=== PATIENT | female | born 1975 | race Caucasian/White ===

== ENCOUNTER 2018-04-08 17:03 | Emergency (ER) | payer OTHER ==
[2018-04-08 18:26] LABS: ADD MAN DIFF? NO
[2018-04-08 18:27] LABS: BASOPHIL # 0.1 10^3/ul (0.0-0.1); BASOPHILS % 0.7 % (0.0-2.0); EOSINOPHILS # 0.1 10^3/ul (0.0-0.5); EOSINOPHILS % 0.8 % (0.0-7.0); HEMATOCRIT 30.7 % (37.0-47.0); HEMOGLOBIN 10.4 g/dl (12.0-16.0); LYMPHOCYTES # 2.2 10^3/ul (0.8-2.9); LYMPHOCYTES % 24.8 % (15.0-51.0); MEAN CORPUSCULAR HEMOGLOBIN 34.9 pg (29.0-33.0); MEAN CORPUSCULAR HGB CONC 33.9 g/dl (32.0-37.0); MEAN PLATELET VOLUME 10.3 fl (7.4-10.4); MONOCYTE # 0.6 10^3/ul (0.3-0.9); MONOCYTES % 7.2 % (0.0-11.0); NEUTROPHIL # 5.7 10^3/ul (1.6-7.5); NEUTROPHILS % 65.9 % (39.0-77.0); PLATELET COUNT 139 10^3/UL (140-415); RED BLOOD COUNT 2.98 10^6/ul (4.20-5.40); RED CELL DISTRIBUTION WIDTH 17.7 % (11.5-14.5)
[2018-04-08 18:27] LABS: WHITE BLOOD COUNT 8.7 10^3/ul (4.8-10.8)
[2018-04-08] MEDS: ONDANSETRON 4 MG INJ IV ×2 (18:41→20:26)
[2018-04-08] MEDS: morphine 4 MG/ML VIAL IV (18:41)
[2018-04-08 18:44] LABS: ADD UMIC NO; ALANINE AMINOTRANSFERASE 56 IU/L (13-69); ALBUMIN 4.2 g/dl (3.3-4.9); ALKALINE PHOSPHATASE 192 IU/L (42-121); ANION GAP 19 (8-16); ASPARTATE AMINO TRANSFERASE 365 IU/L (15-46); BILIRUBIN,INDIRECT 2.9 mg/dl (0-1.1); BILIRUBIN,TOTAL 4.4 mg/dl (0.2-1.3); CARBON DIOXIDE 23 mmol/L (21-31); CHLORIDE 105 mmol/L (97-110); CREATININE 0.42 mg/dl (0.44-1.00); GLUCOSE 92 mg/dl (70-220); LIPASE 105 U/L (23-300); SODIUM 143 mmol/L (135-144); TOTAL PROTEIN 9.9 g/dl (6.1-8.1); UR ASCORBIC ACID NEGATIVE (NEGATIVE); UR BILIRUBIN (Dip) NEGATIVE (NEGATIVE); UR BLOOD (Dip) NEGATIVE (NEGATIVE); UR CLARITY CLEAR (CLEAR); UR COLOR YELLOW (YELLOW); UR GLUCOSE (Dip) NEGATIVE (NEGATIVE); UR KETONES (Dip) NEGATIVE (NEGATIVE); UR LEUKOCYTE ESTERASE (Dip) NEGATIVE Leu/ul (NEGATIVE); UR NITRITE (Dip) NEGATIVE (NEGATIVE); UR SPECIFIC GRAVITY (Dip) 1.001 (1.003-1.030); UR TOTAL PROTEIN (Dip) NEGATIVE (NEGATIVE); UR UROBILINOGEN (Dip) 1+ mg/dL (NEGATIVE)
[2018-04-08 18:45] LABS: ALBUMIN/GLOBULIN RATIO 0.73; BLOOD UREA NITROGEN < 2 mg/dl (7-20)
[2018-04-08 18:51] LABS: PROTIME 18.4 Sec (11.9-14.9); PT RATIO 1.4
[2018-04-08 18:52] LABS: PARTIAL THROMBOPLASTIN TIME 41.8 Sec (25.0-35.0)
[2018-04-08] MEDS: IODIXANOL LOCM 100 ML BTL (20:15)
[2018-04-08] MEDS: SOD CHLORIDE 0.9% 100 ML (20:15)
== END 2018-04-08 23:09 | disposition home or self-care (01) ==
LOC: FTE 17:03
DX: S80.12XA Contusion of left lower leg, initial encounter (principal); K74.60 Unspecified cirrhosis of liver; J45.909 Unspecified asthma, uncomplicated; E03.9 Hypothyroidism, unspecified; W18.39XA Other fall on same level, initial encounter; Y92.9 Unspecified place or not applicable
CPT/HCPCS: 36415; 74177; 80053; 81003; 81025; 83690; 85025; 85610; 85730; 93971; 96374; 96375; 96376; 99285-25

== ENCOUNTER 2018-06-06 19:48 | Inpatient (IN) | payer OTHER ==
[2018-06-06 20:28] LABS: WHITE BLOOD COUNT 6.6 10^3/ul (4.8-10.8)
[2018-06-06 20:28] LABS: ABNORMAL IP MESSAGE 1; MEAN CORPUSCULAR HEMOGLOBIN 33.8 pg (29.0-33.0); MEAN CORPUSCULAR HGB CONC 32.9 g/dl (32.0-37.0); MEAN CORPUSCULAR VOLUME 102.9 fl (82.0-101.0); MEAN PLATELET VOLUME 10.3 fl (7.4-10.4); PLATELET COUNT 111 10^3/UL (140-415); RED BLOOD COUNT 2.04 10^6/ul (4.20-5.40); RED CELL DISTRIBUTION WIDTH 14.7 % (11.5-14.5)
[2018-06-06] MEDS: LIDOCAINE 2% JELLY 5 ML TOP (20:33)
[2018-06-06 20:34] LABS: HEMOGLOBIN 6.9 g/dl (12.0-16.0); POSITIVE DIFF @See below
[2018-06-06 20:35] LABS: ADD MAN DIFF? YES; PATH REVIEW? YES
[2018-06-06] MEDS: SOD CHLORIDE 0.9% 1,000 ML IV ×2 (20:45→20:46)
[2018-06-06 20:50] LABS: ALANINE AMINOTRANSFERASE 26 IU/L (13-69); ALBUMIN 3.1 g/dl (3.3-4.9); ALBUMIN/GLOBULIN RATIO 0.63; ALKALINE PHOSPHATASE 186 IU/L (42-121); ANION GAP 14 (8-16); ASPARTATE AMINO TRANSFERASE 83 IU/L (15-46); BLOOD UREA NITROGEN 10 mg/dl (7-20); CALCIUM 8.3 mg/dl (8.4-10.2); CARBON DIOXIDE 23 mmol/L (21-31); CHLORIDE 106 mmol/L (97-110); CREATININE 0.59 mg/dl (0.44-1.00); GLUCOSE 109 mg/dl (70-220); LIPASE 445 U/L (23-300); POTASSIUM 3.7 mmol/L (3.5-5.1); SODIUM 139 mmol/L (135-144)
[2018-06-06 21:00] LABS: PROTIME 24.1 Sec (11.9-14.9); PT RATIO 1.9
[2018-06-06 21:04] LABS: ETHANOL < 10.0 mg/dl
[2018-06-06] MEDS: ONDANSETRON 4 MG INJ IV (21:12)
[2018-06-06] MEDS: PANTOPRAZOLE 40 MG INJ IV ×2 (21:12→21:38)
[2018-06-06 21:32] LABS: PARTIAL THROMBOPLASTIN TIME 45.3 Sec (25.0-35.0)
[2018-06-06] MEDS: OCTREOTIDE 50 MCG in SOD CHLORIDE 0.9% 25 ML IVPB (21:35)
[2018-06-06] MEDS: PANTOPRAZOLE IV 80 MG in SOD CHLORIDE 0.9% 100 ML IV (21:36)
[2018-06-06] MEDS: OCTREOTIDE 500 MCG in SOD CHLORIDE 0.9% 49 ML IV (21:36)
[2018-06-06 22:24] LABS: URINE BLOOD (Dip) POC Negative (NEGATIVE); URINE GLUCOSE (Dip) POC Negative (NEGATIVE); URINE KETONES (Dip) POC Negative (NEGATIVE); URINE LEUKOCYTE EST (Dip) POC Negative (NEGATIVE); URINE NITRITE (Dip) POC Negative (NEGATIVE); URINE TOTAL PROTEIN POC Negative (NEGATIVE)
[2018-06-06 22:32] LABS: ANISOCYTOSIS 1+ (0-0); BAND NEUTROPHILS #M 0.1 10^3/ul (0.0-0.6); BAND NEUTROPHILS % (M) 2 % (0-4); EOSINOPHILS % (M) 10 % (0-7); LYMPHOCYTES #M 1.8 10^3/ul (0.8-2.9); LYMPHOCYTES % (M) 28 % (15-51); MONOCYTE #M 0.2 10^3/ul (0.3-0.9); MONOCYTES % (M) 4 % (0-11); PLATELET ESTIMATE DECREASED; POIKILOCYTOSIS 3+ (0-0); SEG NEUT #M 3.7 10^3/ul (1.6-7.5); SEGMENTED NEUTROPHILS (M) % 56 % (39-77); SMUDGE%M 8 % (0-0)
[2018-06-06] MEDS ORDERED: ONDANSETRON 4 MG INJ IV (23:00)
[2018-06-06] MEDS ORDERED: NACL 0.9% 3 ML SYG IV (23:00)
[2018-06-06] MEDS ORDERED: DEXTROSE 5%-0.45% NACL 1,000 ML IV (23:00)
[2018-06-06] MEDS: LORAZEPAM 2 MG INJ IV (23:05)
[2018-06-06 23:12] LABS: IMMEDIATE SPIN CROSSMATCH 1 4
[2018-06-07] MEDS: PANTOPRAZOLE IV 80 MG in SOD CHLORIDE 0.9% 100 ML IV ×2 (07:38→19:56)
[2018-06-07] MEDS ORDERED: LEVOTHYROXINE 500 MCG VIAL IV (10:00)
[2018-06-07 10:06] LABS: ADD MAN DIFF? NO
[2018-06-07 10:30] LABS: WHITE BLOOD COUNT 5.2 10^3/ul (4.8-10.8)
[2018-06-07 10:30] LABS: ABNORMAL IP MESSAGE 1; BASOPHILS % 0.4 % (0.0-2.0); EOSINOPHILS # 0.2 10^3/ul (0.0-0.5); EOSINOPHILS % 2.9 % (0.0-7.0); HEMATOCRIT 22.4 % (37.0-47.0); HEMOGLOBIN 7.5 g/dl (12.0-16.0); LYMPHOCYTES # 1.2 10^3/ul (0.8-2.9); LYMPHOCYTES % 23.1 % (15.0-51.0); MEAN CORPUSCULAR HEMOGLOBIN 33.3 pg (29.0-33.0); MEAN CORPUSCULAR HGB CONC 33.5 g/dl (32.0-37.0); MEAN CORPUSCULAR VOLUME 99.6 fl (82.0-101.0); MEAN PLATELET VOLUME 10.9 fl (7.4-10.4); MONOCYTE # 0.4 10^3/ul (0.3-0.9); MONOCYTES % 8.2 % (0.0-11.0); NEUTROPHIL # 3.4 10^3/ul (1.6-7.5); NEUTROPHILS % 64.8 % (39.0-77.0); PLATELET COUNT 90 10^3/UL (140-415); RED BLOOD COUNT 2.25 10^6/ul (4.20-5.40); RED CELL DISTRIBUTION WIDTH 17.3 % (11.5-14.5)
[2018-06-07 10:31] LABS: POSITIVE DIFF @See below
[2018-06-07 10:33] LABS: LACTIC ACID 1.2 mmol/L (0.5-2.0)
[2018-06-07 10:33] LABS: ALANINE AMINOTRANSFERASE 28 IU/L (13-69); ALBUMIN 2.8 g/dl (3.3-4.9); ALBUMIN/GLOBULIN RATIO 0.63; ALKALINE PHOSPHATASE 135 IU/L (42-121); ANION GAP 9 (8-16); ASPARTATE AMINO TRANSFERASE 75 IU/L (15-46); BILIRUBIN,INDIRECT 4.4 mg/dl (0-1.1); BILIRUBIN,TOTAL 4.4 mg/dl (0.2-1.3); BLOOD UREA NITROGEN 12 mg/dl (7-20); CARBON DIOXIDE 25 mmol/L (21-31); CHLORIDE 109 mmol/L (97-110); CREATININE 0.54 mg/dl (0.44-1.00); GLUCOSE 123 mg/dl (70-220); SODIUM 139 mmol/L (135-144); TOTAL PROTEIN 7.2 g/dl (6.1-8.1)
[2018-06-07] MEDS: SOD CHLORIDE 0.9% 1,000 ML IV ×3 (11:13→23:01)
[2018-06-07] MEDS: LEVOTHYROXINE 100 MCG VIAL IV (11:14)
[2018-06-07] MEDS: OCTREOTIDE 1 MG in DEXTROSE 5% 95 ML IV (11:20)
[2018-06-07] MEDS ORDERED: morphine 2 MG INJ IV (14:30)
[2018-06-07] MEDS: LORAZEPAM 2 MG INJ IV (15:59)
[2018-06-07 16:21] LABS: IMMEDIATE SPIN CROSSMATCH 1
[2018-06-07] MEDS: SOD CHLORIDE 0.9% 250 ML IV* (16:36)
[2018-06-08 01:18] LABS: HEMATOCRIT 25.9 % (37.0-47.0); HEMOGLOBIN 8.8 g/dl (12.0-16.0)
[2018-06-08] MEDS: PANTOPRAZOLE IV 80 MG in SOD CHLORIDE 0.9% 100 ML IV ×2 (03:54→16:55)
[2018-06-08] MEDS: OCTREOTIDE 1 MG in DEXTROSE 5% 95 ML IV (04:15)
[2018-06-08 05:17] LABS: ADD MAN DIFF? NO
[2018-06-08 05:26] LABS: ABNORMAL IP MESSAGE 1; BASOPHIL # 0.1 10^3/ul (0.0-0.1); BASOPHILS % 1.1 % (0.0-2.0); EOSINOPHILS # 0.3 10^3/ul (0.0-0.5); EOSINOPHILS % 5.7 % (0.0-7.0); HEMATOCRIT 25.3 % (37.0-47.0); HEMOGLOBIN 8.5 g/dl (12.0-16.0); LYMPHOCYTES # 1.7 10^3/ul (0.8-2.9); LYMPHOCYTES % 35.2 % (15.0-51.0); MEAN CORPUSCULAR HEMOGLOBIN 32.8 pg (29.0-33.0); MEAN CORPUSCULAR HGB CONC 33.6 g/dl (32.0-37.0); MEAN CORPUSCULAR VOLUME 97.7 fl (82.0-101.0); MEAN PLATELET VOLUME 10.5 fl (7.4-10.4); MONOCYTE # 0.4 10^3/ul (0.3-0.9); MONOCYTES % 8.8 % (0.0-11.0); NEUTROPHIL # 2.3 10^3/ul (1.6-7.5); NEUTROPHILS % 48.4 % (39.0-77.0); PLATELET COUNT 87 10^3/UL (140-415); RED BLOOD COUNT 2.59 10^6/ul (4.20-5.40); RED CELL DISTRIBUTION WIDTH 17.2 % (11.5-14.5)
[2018-06-08 05:26] LABS: WHITE BLOOD COUNT 4.8 10^3/ul (4.8-10.8)
[2018-06-08 05:39] LABS: POSITIVE DIFF @See below
[2018-06-08] MEDS: LEVOTHYROXINE 100 MCG VIAL IV (05:39)
[2018-06-08 05:46] LABS: PROTIME 23.2 Sec (11.9-14.9); PT RATIO 1.8
[2018-06-08 05:47] LABS: PARTIAL THROMBOPLASTIN TIME 41.6 Sec (25.0-35.0); THROMBIN TIME 20.5 SEC (13.8-19.1)
[2018-06-08 05:53] LABS: PLATELET COUNT 89 10^3/UL (140-415)
[2018-06-08 05:59] LABS: MAGNESIUM 1.9 mg/dl (1.7-2.5)
[2018-06-08] MEDS ORDERED: LEVOTHYROXINE 500 MCG VIAL IV (06:00)
[2018-06-08 06:05] LABS: ALANINE AMINOTRANSFERASE 31 IU/L (13-69); ALBUMIN 2.6 g/dl (3.3-4.9); ALBUMIN/GLOBULIN RATIO 0.55; ALKALINE PHOSPHATASE 101 IU/L (42-121); ANION GAP 11 (8-16); ASPARTATE AMINO TRANSFERASE 88 IU/L (15-46); BLOOD UREA NITROGEN 11 mg/dl (7-20); CALCIUM 8.2 mg/dl (8.4-10.2); CARBON DIOXIDE 24 mmol/L (21-31); CHLORIDE 109 mmol/L (97-110); GLUCOSE 93 mg/dl (70-220); POTASSIUM 3.6 mmol/L (3.5-5.1); SODIUM 140 mmol/L (135-144); TOTAL PROTEIN 7.3 g/dl (6.1-8.1)
[2018-06-08] MEDS: LORAZEPAM 2 MG INJ IV (06:52)
[2018-06-08 11:35] LABS: HEMATOCRIT 25.3 % (37.0-47.0); HEMOGLOBIN 8.5 g/dl (12.0-16.0)
[2018-06-08] MEDS ORDERED: MIDAZOLAM 1 MG/ML 2 ML INJ (12:54)
[2018-06-08] MEDS ORDERED: PROPOFOL 20 ML (12:54)
[2018-06-08] MEDS ORDERED: LIDOCAINE 2% (SDV) 5 ML INJ (12:54)
[2018-06-08] MEDS ORDERED: ONDANSETRON 4 MG INJ IV (14:00)
[2018-06-08] MEDS: SOD CHLORIDE 0.9% 1,000 ML IV (16:56)
[2018-06-08] MEDS: ALBUTEROL/IPRATROPIUM (NEB) 3 ML AMP HHN (17:09)
[2018-06-08] MEDS: SUCRALFATE 1 GM TAB PO ×2 (17:23→20:21)
[2018-06-09] MEDS: LORAZEPAM 2 MG INJ IV ×2 (00:01→20:12)
[2018-06-09] MEDS: PANTOPRAZOLE IV 80 MG in SOD CHLORIDE 0.9% 100 ML IV ×2 (00:01→09:17)
[2018-06-09] MEDS: SOD CHLORIDE 0.9% 1,000 ML IV (01:30)
[2018-06-09] MEDS: ALBUTEROL/IPRATROPIUM (NEB) 3 ML AMP HHN ×2 (02:46→09:40)
[2018-06-09 06:11] LABS: ADD MAN DIFF? NO
[2018-06-09 06:20] LABS: ABNORMAL IP MESSAGE 1; BASOPHILS % 0.7 % (0.0-2.0); EOSINOPHILS # 0.3 10^3/ul (0.0-0.5); EOSINOPHILS % 6.4 % (0.0-7.0); HEMATOCRIT 25.2 % (37.0-47.0); HEMOGLOBIN 8.5 g/dl (12.0-16.0); LYMPHOCYTES # 1.4 10^3/ul (0.8-2.9); LYMPHOCYTES % 32.7 % (15.0-51.0); MEAN CORPUSCULAR HEMOGLOBIN 33.2 pg (29.0-33.0); MEAN CORPUSCULAR HGB CONC 33.7 g/dl (32.0-37.0); MEAN CORPUSCULAR VOLUME 98.4 fl (82.0-101.0); MEAN PLATELET VOLUME 10.6 fl (7.4-10.4); MONOCYTE # 0.4 10^3/ul (0.3-0.9); MONOCYTES % 9.7 % (0.0-11.0); NEUTROPHIL # 2.1 10^3/ul (1.6-7.5); NEUTROPHILS % 49.8 % (39.0-77.0); PLATELET COUNT 79 10^3/UL (140-415); RED BLOOD COUNT 2.56 10^6/ul (4.20-5.40); RED CELL DISTRIBUTION WIDTH 17.2 % (11.5-14.5)
[2018-06-09 06:20] LABS: WHITE BLOOD COUNT 4.2 10^3/ul (4.8-10.8)
[2018-06-09 06:38] LABS: ANION GAP 11 (8-16); BLOOD UREA NITROGEN 8 mg/dl (7-20); CARBON DIOXIDE 26 mmol/L (21-31); CHLORIDE 107 mmol/L (97-110); CREATININE 0.59 mg/dl (0.44-1.00); GLUCOSE 93 mg/dl (70-220); MAGNESIUM 1.7 mg/dl (1.7-2.5); PHOSPHORUS 4.2 mg/dl (2.5-4.9); POTASSIUM 3.5 mmol/L (3.5-5.1); SODIUM 140 mmol/L (135-144)
[2018-06-09 06:55] LABS: POSITIVE DIFF @See below
[2018-06-09] MEDS: LEVOTHYROXINE 100 MCG VIAL IV (07:12)
[2018-06-09] MEDS: SUCRALFATE 1 GM TAB PO ×4 (09:17→20:12)
[2018-06-09] MEDS: PANTOPRAZOLE (EC) 40 MG TAB PO ×2 (11:55→17:19)
[2018-06-09] MEDS: FUROSEMIDE 20 MG TAB PO (11:56)
[2018-06-09] MEDS: PROPRANOLOL 10 MG TAB PO ×2 (13:31→20:12)
[2018-06-10] MEDS: ALBUTEROL/IPRATROPIUM (NEB) 3 ML AMP HHN (02:15)
[2018-06-10] MEDS: LORAZEPAM 2 MG INJ IV (04:10)
[2018-06-10] MEDS: PANTOPRAZOLE (EC) 40 MG TAB PO (06:46)
[2018-06-10] MEDS: LEVOTHYROXINE 125 MCG TAB PO (06:48)
[2018-06-10 07:05] LABS: ADD MAN DIFF? NO
[2018-06-10 07:12] LABS: WHITE BLOOD COUNT 4.5 10^3/ul (4.8-10.8)
[2018-06-10 07:12] LABS: ABNORMAL IP MESSAGE 1; BASOPHILS % 0.9 % (0.0-2.0); EOSINOPHILS # 0.4 10^3/ul (0.0-0.5); EOSINOPHILS % 9.3 % (0.0-7.0); HEMATOCRIT 25.9 % (37.0-47.0); HEMOGLOBIN 8.7 g/dl (12.0-16.0); LYMPHOCYTES # 1.4 10^3/ul (0.8-2.9); LYMPHOCYTES % 31.2 % (15.0-51.0); MEAN CORPUSCULAR HEMOGLOBIN 32.7 pg (29.0-33.0); MEAN CORPUSCULAR HGB CONC 33.6 g/dl (32.0-37.0); MEAN CORPUSCULAR VOLUME 97.4 fl (82.0-101.0); MEAN PLATELET VOLUME 10.5 fl (7.4-10.4); MONOCYTE # 0.5 10^3/ul (0.3-0.9); MONOCYTES % 10.2 % (0.0-11.0); NEUTROPHIL # 2.2 10^3/ul (1.6-7.5); PLATELET COUNT 79 10^3/UL (140-415); RED BLOOD COUNT 2.66 10^6/ul (4.20-5.40); RED CELL DISTRIBUTION WIDTH 17.3 % (11.5-14.5)
[2018-06-10 07:22] LABS: POSITIVE DIFF @See below
[2018-06-10 07:56] LABS: ANION GAP 8 (8-16); BLOOD UREA NITROGEN 8 mg/dl (7-20); CALCIUM 8.1 mg/dl (8.4-10.2); CARBON DIOXIDE 29 mmol/L (21-31); CHLORIDE 106 mmol/L (97-110); GLUCOSE 85 mg/dl (70-220); MAGNESIUM 1.6 mg/dl (1.7-2.5); PHOSPHORUS 4.6 mg/dl (2.5-4.9); POTASSIUM 3.4 mmol/L (3.5-5.1); SODIUM 140 mmol/L (135-144)
[2018-06-10] MEDS: SPIRONOLACTONE 25 MG TAB PO (09:07)
[2018-06-10] MEDS: PROPRANOLOL 10 MG TAB PO ×2 (09:08→14:40)
[2018-06-10] MEDS: SUCRALFATE 1 GM TAB PO ×2 (09:08→14:40)
[2018-06-10] MEDS: FUROSEMIDE 20 MG TAB PO (09:09)
[2018-06-10] MEDS: POTASSIUM CHLORIDE 20 MEQ POWDER FOR ORAL SOLN PO (10:06)
[2018-06-10] MEDS ORDERED: MAGNESIUM OXIDE 400 MG TAB PO (11:30)
[2018-06-10] MEDS: MAGNESIUM OXIDE 400 MG TAB PO (14:40)
== END 2018-06-10 15:20 | disposition home or self-care (01) | DRG 377 ==
LOC: ICU 21:13 → 6WM 06-09 02:33 → E/R 19:48
PROC: 0DJ08ZZ Inspection of Upper Intestinal Tract, Via Natural or Artificial Opening Endoscopic (ICD-10-PCS; principal; 2018-06-08 12:43)
PROC: 30233K1 Transfusion of Nonautologous Frozen Plasma into Peripheral Vein, Percutaneous Approach (ICD-10-PCS; 2018-06-08 12:43)
PROC: 30233N1 Transfusion of Nonautologous Red Blood Cells into Peripheral Vein, Percutaneous Approach (ICD-10-PCS; 2018-06-08 12:43)
DX: K25.4 Chronic or unspecified gastric ulcer with hemorrhage (principal); K85.90 Acute pancreatitis without necrosis or infection, unspecified; D62 Acute posthemorrhagic anemia; D68.4 Acquired coagulation factor deficiency; I85.00 Esophageal varices without bleeding; I95.9 Hypotension, unspecified; D69.6 Thrombocytopenia, unspecified; K70.30 Alcoholic cirrhosis of liver without ascites; K80.20 Calculus of gallbladder without cholecystitis without obstruction; Q27.33 Arteriovenous malformation of digestive system vessel; E80.6 Other disorders of bilirubin metabolism; E03.9 Hypothyroidism, unspecified; D53.9 Nutritional anemia, unspecified
CPT/HCPCS: 36415; 36430; 71045; 74181; 76700; 80048; 80053; 80307; 81003; 81025; 83605; 83690; 83735; 84100; 85014; 85018; 85025; 85049; 85610; 85670; 85730; 86850; 86900; 86901; 86920; 87040; 87081; 93005; 94640; 94664; 96374; 96375; 99291-25

== ENCOUNTER 2018-07-09 19:19 | Observation (INO) | payer OTHER ==
[2018-07-09 22:07] LABS: ADD UMIC YES; UR ASCORBIC ACID 20 mg/dL (NEGATIVE); UR BILIRUBIN (Dip) NEGATIVE (NEGATIVE); UR BLOOD (Dip) NEGATIVE (NEGATIVE); UR CLARITY CLEAR (CLEAR); UR COLOR AMBER (YELLOW); UR GLUCOSE (Dip) NEGATIVE (NEGATIVE); UR KETONES (Dip) NEGATIVE (NEGATIVE); UR LEUKOCYTE ESTERASE (Dip) NEGATIVE Leu/ul (NEGATIVE); UR NITRITE (Dip) NEGATIVE (NEGATIVE); UR RBC 4 /HPF (0-5); UR SPECIFIC GRAVITY (Dip) 1.017 (1.003-1.030); UR SQUAMOUS EPITHELIAL CELL FEW /HPF (FEW); UR TOTAL PROTEIN (Dip) 1+ mg/dl (NEGATIVE); UR UROBILINOGEN (Dip) 2+ mg/dL (NEGATIVE); UR WBC 3 /HPF (0-5)
[2018-07-09 22:15] LABS: ADD MAN DIFF? NO
[2018-07-09 22:16] LABS: WHITE BLOOD COUNT 10.4 10^3/ul (4.8-10.8)
[2018-07-09 22:16] LABS: BASOPHILS % 0.3 % (0.0-2.0); EOSINOPHILS # 0.2 10^3/ul (0.0-0.5); EOSINOPHILS % 2.3 % (0.0-7.0); HEMATOCRIT 24.4 % (37.0-47.0); LYMPHOCYTES # 1.7 10^3/ul (0.8-2.9); LYMPHOCYTES % 16.4 % (15.0-51.0); MEAN CORPUSCULAR HEMOGLOBIN 34.9 pg (29.0-33.0); MEAN CORPUSCULAR HGB CONC 32.8 g/dl (32.0-37.0); MEAN CORPUSCULAR VOLUME 106.6 fl (82.0-101.0); MEAN PLATELET VOLUME 10.8 fl (7.4-10.4); MONOCYTES % 9.2 % (0.0-11.0); NEUTROPHIL # 7.4 10^3/ul (1.6-7.5); NEUTROPHILS % 71.2 % (39.0-77.0); PLATELET COUNT 118 10^3/UL (140-415); RED BLOOD COUNT 2.29 10^6/ul (4.20-5.40); RED CELL DISTRIBUTION WIDTH 17.7 % (11.5-14.5)
[2018-07-09] MEDS: SODIUM CHLORIDE 0.9% 1L BAG IV* (22:18)
[2018-07-09] MEDS: ACETAMINOPHEN 325 MG TAB PO (22:27)
[2018-07-09] MEDS: ONDANSETRON 4 MG INJ IV (22:28)
[2018-07-09] MEDS: LIDOCAINE/MYLANTA 40 ML BTL PO (22:28)
[2018-07-09] MEDS: morphine 4 MG/ML VIAL IV (22:29)
[2018-07-09 22:31] LABS: INR 2.22; PROTIME 25.2 Sec (11.9-14.9)
[2018-07-09 22:32] LABS: PARTIAL THROMBOPLASTIN TIME 46.2 Sec (23.0-35.0)
[2018-07-09 22:37] LABS: ANION GAP 10 (8-16); BLOOD UREA NITROGEN 7 mg/dl (7-20); CALCIUM 8.8 mg/dl (8.4-10.2); CARBON DIOXIDE 28 mmol/L (21-31); CHLORIDE 103 mmol/L (97-110); CREATININE 0.61 mg/dl (0.44-1.00); GLUCOSE 127 mg/dl (70-220); POTASSIUM 4.2 mmol/L (3.5-5.1); SODIUM 137 mmol/L (135-144)
[2018-07-09 22:49] LABS: TROPONIN-I < 0.012 ng/ml (0.000-0.120)
[2018-07-09] MEDS: ALBUTEROL/IPRATROPIUM (NEB) 3 ML AMP HHN (23:32)
[2018-07-10] MEDS: CEFEPIME 1GM/50 ML (PMX) 50 ML IVPB (01:06)
[2018-07-10] MEDS: CIPROFLOXACIN 400MG/D5W 200 ML IVPB (01:37)
[2018-07-10] MEDS: ONDANSETRON 4 MG INJ IV (01:52)
[2018-07-10] MEDS: LORAZEPAM 2 MG INJ IV (01:52)
[2018-07-10] MEDS ORDERED: DOCUSATE SODIUM 100 MG CAP PO (02:00)
[2018-07-10] MEDS ORDERED: ALBUTEROL 0.083% (NEB) 2.5 MG/3 ML AMP NEB (02:00)
[2018-07-10] MEDS ORDERED: BISACODYL (EC) 5 MG TAB PO (02:00)
[2018-07-10] MEDS ORDERED: ONDANSETRON 4 MG INJ IV (02:00)
[2018-07-10] MEDS ORDERED: NACL 0.9% 3 ML SYG IV (02:00)
[2018-07-10] MEDS: ALBUTEROL/IPRATROPIUM (NEB) 3 ML AMP HHN ×3 (04:03→16:59)
[2018-07-10] MEDS: LIDOCAINE/MYLANTA 40 ML BTL PO (04:21)
[2018-07-10] MEDS: PANTOPRAZOLE (EC) 40 MG TAB PO ×2 (06:09→17:34)
[2018-07-10] MEDS: PIPER-TAZO 3.375 GM IV (PMX) 100 ML IVPB ×4 (06:10→23:57)
[2018-07-10] MEDS: FUROSEMIDE 20 MG TAB PO ×2 (06:10→12:35)
[2018-07-10] MEDS: LEVOTHYROXINE 100 MCG TAB PO (06:10)
[2018-07-10] MEDS: LEVOTHYROXINE 25 MCG TAB PO (06:13)
[2018-07-10 06:15] LABS: LACTIC ACID 1.2 mmol/L (0.5-2.0)
[2018-07-10 06:26] LABS: B-TYPE NATRIURETIC PEPTIDE 2020 PG/ML (0-125)
[2018-07-10 08:09] LABS: FOLATE 6.6 ng/ml (2.8-20.0)
[2018-07-10] MEDS: predniSONE 20 MG TAB PO (09:00)
[2018-07-10] MEDS: SPIRONOLACTONE 25 MG TAB PO ×2 (09:00→16:00)
[2018-07-10] MEDS: PROPRANOLOL 10 MG TAB PO ×3 (09:00→20:14)
[2018-07-10] MEDS: SUCRALFATE 1 GM TAB PO ×4 (09:17→20:14)
[2018-07-10] MEDS: INFLUENZA VIRUS VACCINE 0.5 ML (DISPENSING) IM* (12:37)
[2018-07-10] MEDS: LORAZEPAM 0.5 MG TAB PO (20:13)
[2018-07-11] MEDS: ACETAMINOPHEN 325 MG TAB PO (01:06)
[2018-07-11] MEDS: ALBUTEROL/IPRATROPIUM (NEB) 3 ML AMP HHN ×2 (01:47→07:42)
[2018-07-11 05:46] LABS: ADD MAN DIFF? NO
[2018-07-11 05:47] LABS: WHITE BLOOD COUNT 5.6 10^3/ul (4.8-10.8)
[2018-07-11 05:47] LABS: ABNORMAL IP MESSAGE 1; BASOPHILS % 0.7 % (0.0-2.0); EOSINOPHILS # 0.3 10^3/ul (0.0-0.5); EOSINOPHILS % 4.6 % (0.0-7.0); HEMATOCRIT 22.1 % (37.0-47.0); HEMOGLOBIN 7.3 g/dl (12.0-16.0); LYMPHOCYTES # 1.4 10^3/ul (0.8-2.9); LYMPHOCYTES % 25.5 % (15.0-51.0); MEAN CORPUSCULAR HEMOGLOBIN 35.4 pg (29.0-33.0); MEAN CORPUSCULAR VOLUME 107.3 fl (82.0-101.0); MEAN PLATELET VOLUME 10.9 fl (7.4-10.4); MONOCYTE # 0.8 10^3/ul (0.3-0.9); MONOCYTES % 13.5 % (0.0-11.0); NEUTROPHIL # 3.1 10^3/ul (1.6-7.5); NEUTROPHILS % 55.2 % (39.0-77.0); PLATELET COUNT 91 10^3/UL (140-415); RED BLOOD COUNT 2.06 10^6/ul (4.20-5.40); RED CELL DISTRIBUTION WIDTH 17.7 % (11.5-14.5)
[2018-07-11] MEDS: PANTOPRAZOLE (EC) 40 MG TAB PO (06:26)
[2018-07-11] MEDS: LEVOTHYROXINE 100 MCG TAB PO (06:26)
[2018-07-11] MEDS: PIPER-TAZO 3.375 GM IV (PMX) 100 ML IVPB ×2 (06:27→12:32)
[2018-07-11] MEDS: FUROSEMIDE 20 MG TAB PO ×2 (06:27→12:14)
[2018-07-11] MEDS: LEVOTHYROXINE 25 MCG TAB PO (06:28)
[2018-07-11 06:30] LABS: POSITIVE DIFF @See below
[2018-07-11 07:12] LABS: ALBUMIN 3.2 g/dl (3.3-4.9); ALBUMIN/GLOBULIN RATIO 0.61; ALKALINE PHOSPHATASE 118 IU/L (42-121); ANION GAP 11 (8-16); ASPARTATE AMINO TRANSFERASE 55 IU/L (15-46); BILIRUBIN,INDIRECT 6.9 mg/dl (0-1.1); BILIRUBIN,TOTAL 7.1 mg/dl (0.2-1.3); BLOOD UREA NITROGEN 8 mg/dl (7-20); CALCIUM 8.4 mg/dl (8.4-10.2); CARBON DIOXIDE 26 mmol/L (21-31); CHLORIDE 106 mmol/L (97-110); CREATININE 0.75 mg/dl (0.44-1.00); GLUCOSE 92 mg/dl (70-220); MAGNESIUM 1.9 mg/dl (1.7-2.5); POTASSIUM 4.2 mmol/L (3.5-5.1); SODIUM 139 mmol/L (135-144); TOTAL PROTEIN 8.4 g/dl (6.1-8.1)
[2018-07-11 07:58] LABS: ALANINE AMINOTRANSFERASE 35 IU/L (13-69)
[2018-07-11] MEDS: SUCRALFATE 1 GM TAB PO ×2 (08:08→12:15)
[2018-07-11] MEDS: SPIRONOLACTONE 25 MG TAB PO (08:09)
[2018-07-11] MEDS: predniSONE 20 MG TAB PO (08:09)
[2018-07-11] MEDS: PROPRANOLOL 10 MG TAB PO ×2 (08:09→12:14)
== END 2018-07-11 14:25 | disposition home or self-care (01) ==
LOC: E/R 19:19 → 2NE 07-10 00:54
DX: J18.9 Pneumonia, unspecified organism (principal); K70.30 Alcoholic cirrhosis of liver without ascites; D63.8 Anemia in other chronic diseases classified elsewhere; E03.9 Hypothyroidism, unspecified; F41.9 Anxiety disorder, unspecified; D61.818 Other pancytopenia; I51.7 Cardiomegaly; I70.0 Atherosclerosis of aorta
CPT/HCPCS: 36415; 71045; 80048; 80053; 81001; 81025; 82607; 82746; 83605; 83735; 83880; 84484; 85025; 85610; 85730; 87040; 87081; 87086; 93005; 93306; 94640; 94664; 96374; 96375; 99285-25; G0378

== ENCOUNTER 2018-08-11 11:22 | Emergency (ER) | payer OTHER ==
[2018-08-11] MEDS: traMADol 50 MG TAB PO (12:13)
== END 2018-08-11 13:36 | disposition home or self-care (01) ==
LOC: FTE 11:22
DX: S89.92XA Unspecified injury of left lower leg, initial encounter (principal); J45.909 Unspecified asthma, uncomplicated; W01.0XXA Fall on same level from slipping, tripping and stumbling without subsequent striking against object, initial encounter; Y92.9 Unspecified place or not applicable
CPT/HCPCS: 73562; 99283-25

== ENCOUNTER 2018-08-13 13:45 | Inpatient (IN) | payer OTHER ==
[2018-08-13] MEDS: morphine 4 MG/ML VIAL IV (14:45)
[2018-08-13] MEDS: ONDANSETRON 4 MG INJ IV ×2 (14:45→19:58)
[2018-08-13 15:01] LABS: WHITE BLOOD COUNT 5.7 10^3/ul (4.8-10.8)
[2018-08-13 15:01] LABS: ABNORMAL IP MESSAGE 1; HEMATOCRIT 18.3 % (37.0-47.0); MEAN CORPUSCULAR HEMOGLOBIN 38.4 pg (29.0-33.0); MEAN CORPUSCULAR HGB CONC 31.7 g/dl (32.0-37.0); MEAN CORPUSCULAR VOLUME 121.2 fl (82.0-101.0); MEAN PLATELET VOLUME 9.3 fl (7.4-10.4); PLATELET COUNT 114 10^3/UL (140-415); RED BLOOD COUNT 1.51 10^6/ul (4.20-5.40); RED CELL DISTRIBUTION WIDTH 18.8 % (11.5-14.5)
[2018-08-13 15:13] LABS: ADD MAN DIFF? YES; HEMOGLOBIN 5.8 g/dl (12.0-16.0); POSITIVE DIFF @See below
[2018-08-13 15:19] LABS: ADD UMIC NO; ALANINE AMINOTRANSFERASE 38 IU/L (13-69); ALBUMIN 3.7 g/dl (3.3-4.9); ALBUMIN/GLOBULIN RATIO 0.64; ALKALINE PHOSPHATASE 220 IU/L (42-121); ANION GAP 10 (5-13); ASPARTATE AMINO TRANSFERASE 110 IU/L (15-46); BILIRUBIN,INDIRECT 7.8 mg/dl (0-1.1); BLOOD UREA NITROGEN 13 mg/dl (7-20); CALCIUM 8.6 mg/dl (8.4-10.2); CARBON DIOXIDE 28 mmol/L (21-31); CHLORIDE 101 mmol/L (97-110); CREATININE 0.55 mg/dl (0.44-1.00); Estimated GFR > 60 mL/min (>60); GLUCOSE 99 mg/dl (70-220); LIPASE 301 U/L (23-300); POTASSIUM 4.1 mmol/L (3.5-5.1); SODIUM 139 mmol/L (135-144); TOTAL PROTEIN 9.4 g/dl (6.1-8.1); UR ASCORBIC ACID 20 mg/dL (NEGATIVE); UR BILIRUBIN (Dip) 1+ mg/dL (NEGATIVE); UR BLOOD (Dip) NEGATIVE (NEGATIVE); UR CLARITY CLEAR (CLEAR); UR COLOR AMBER (YELLOW); UR GLUCOSE (Dip) NEGATIVE (NEGATIVE); UR KETONES (Dip) NEGATIVE (NEGATIVE); UR LEUKOCYTE ESTERASE (Dip) NEGATIVE Leu/ul (NEGATIVE); UR NITRITE (Dip) NEGATIVE (NEGATIVE); UR SPECIFIC GRAVITY (Dip) 1.016 (1.003-1.030); UR TOTAL PROTEIN (Dip) NEGATIVE (NEGATIVE); UR UROBILINOGEN (Dip) 2+ mg/dL (NEGATIVE)
[2018-08-13 15:23] LABS: C-REACTIVE PROTEIN < 0.5 mg/dl (0.0-0.9)
[2018-08-13 15:57] LABS: INR 1.99; PROTIME 23.1 Sec (11.9-14.9); PT RATIO 1.8
[2018-08-13 16:03] LABS: ACANTHOCYTES 1+ (0-0); ANISOCYTOSIS 2+ (0-0); BAND NEUTROPHILS #M 0.2 10^3/ul (0.0-0.6); BAND NEUTROPHILS % (M) 4 % (0-4); BASOPHIL #M 0.1 10^3/ul (0.0-0.0); BASOPHILS % (M) 2 % (0-2); BURR CELLS 1+ (0-0); EOSINOPHILS % (M) 9 % (0-7); GIANT THROMBO% (M) 2 % (0-0); HYPOCHROMASIA 1+ (0-0); LYMPHOCYTES #M 1.8 10^3/ul (0.8-2.9); LYMPHOCYTES % (M) 33 % (15-51); MICROCYTOSIS 1+ (0-0); MONOCYTE #M 0.2 10^3/ul (0.3-0.9); MONOCYTES % (M) 4 % (0-11); PLATELET ESTIMATE DECREASED; POIKILOCYTOSIS 3+ (0-0); POLYCHROMASIA 2+ (0-0); SEG NEUT #M 2.7 10^3/ul (1.6-7.5); SEGMENTED NEUTROPHILS (M) % 48 % (39-77); SMUDGE%M 4 % (0-0)
[2018-08-13 16:05] LABS: ERYTHROCYTE SEDIMENTATION RATE 85 mm/Hr (0-20)
[2018-08-13] MEDS ORDERED: SOD CHLORIDE 0.9% 1,000 ML IV (16:25)
[2018-08-13] MEDS ORDERED: NACL 0.9% 3 ML SYG IV (16:30)
[2018-08-13] MEDS ORDERED: ACETAMINOPHEN 325 MG TAB PO (16:30)
[2018-08-13 16:52] LABS: RETICULOCYTE RBC 1.52
[2018-08-13 16:52] LABS: RETICULOCYTE COUNT # 0.236 X10^6 (0.020-0.110); RETICULOCYTE COUNT % 15.5 % (0.5-1.5)
[2018-08-13] MEDS: SUCRALFATE 1 GM TAB PO ×2 (17:00→21:00)
[2018-08-13 17:03] LABS: IRON 164 ug/dl (35-150)
[2018-08-13 17:03] LABS: LACTATE DEHYDROGENASE 979 IU/L (313-618)
[2018-08-13 17:12] LABS: % IRON SATURATION 59 % SAT (22-52); TOTAL IRON BINDING CAPACITY 276 ug/dl (241-421)
[2018-08-13 17:21] LABS: LACTIC ACID 1.2 mmol/L (0.5-2.0)
[2018-08-13] MEDS: predniSONE 20 MG TAB PO (17:30)
[2018-08-13] MEDS ORDERED: SOD CHLORIDE 0.9% 100 ML (17:40)
[2018-08-13] MEDS ORDERED: IOHEXOL 300MG/ML 150 ML BTL (17:40)
[2018-08-13] MEDS: TRIMETHOPRIM/SULFAMETHOX (DS) TAB PO (18:00)
[2018-08-13 19:49] LABS: FOLATE 16.3 ng/ml (2.8-20.0)
[2018-08-13] MEDS: ALBUTEROL/IPRATROPIUM (NEB) 3 ML AMP HHN ×2 (20:00→20:57)
[2018-08-13] MEDS: FUROSEMIDE 20 MG TAB PO (21:00)
[2018-08-13] MEDS: PROPRANOLOL 10 MG TAB PO (21:00)
[2018-08-13] MEDS ORDERED: PROPRANOLOL 10 MG TAB PO (21:00)
[2018-08-13] MEDS: PANTOPRAZOLE 40 MG INJ IV (21:16)
[2018-08-13 21:48] LABS: IMMEDIATE SPIN CROSSMATCH 1
[2018-08-14] MEDS: HYDROCODONE/APAP (5/325) TAB PO (04:39)
[2018-08-14] MEDS: PANTOPRAZOLE (EC) 40 MG TAB PO (05:59)
[2018-08-14] MEDS: ONDANSETRON 4 MG INJ IV (06:20)
[2018-08-14] MEDS: LEVOTHYROXINE 100 MCG TAB PO (06:20)
[2018-08-14 06:58] LABS: ADD MAN DIFF? NO
[2018-08-14] MEDS ORDERED: PANTOPRAZOLE (EC) 40 MG TAB PO (07:00)
[2018-08-14 07:08] LABS: WHITE BLOOD COUNT 4.7 10^3/ul (4.8-10.8)
[2018-08-14 07:08] LABS: ABNORMAL IP MESSAGE 1; BASOPHILS % 0.6 % (0.0-2.0); EOSINOPHILS # 0.3 10^3/ul (0.0-0.5); EOSINOPHILS % 7.2 % (0.0-7.0); HEMATOCRIT 20.8 % (37.0-47.0); LYMPHOCYTES # 1.5 10^3/ul (0.8-2.9); MEAN CORPUSCULAR HEMOGLOBIN 34.2 pg (29.0-33.0); MEAN CORPUSCULAR HGB CONC 32.2 g/dl (32.0-37.0); MEAN CORPUSCULAR VOLUME 106.1 fl (82.0-101.0); MEAN PLATELET VOLUME 9.2 fl (7.4-10.4); MONOCYTE # 0.6 10^3/ul (0.3-0.9); MONOCYTES % 13.1 % (0.0-11.0); NEUTROPHIL # 2.2 10^3/ul (1.6-7.5); NEUTROPHILS % 46.8 % (39.0-77.0); PLATELET COUNT 91 10^3/UL (140-415); RED BLOOD COUNT 1.96 10^6/ul (4.20-5.40); RED CELL DISTRIBUTION WIDTH 24.9 % (11.5-14.5)
[2018-08-14 07:16] LABS: POSITIVE DIFF @See below
[2018-08-14 07:20] LABS: HEMOGLOBIN 6.7 g/dl (12.0-16.0)
[2018-08-14 07:48] LABS: LIPASE 238 U/L (23-300)
[2018-08-14] MEDS: ALBUTEROL/IPRATROPIUM (NEB) 3 ML AMP HHN ×3 (08:00→20:00)
[2018-08-14 08:20] LABS: ALANINE AMINOTRANSFERASE 34 IU/L (13-69); ALBUMIN 3.4 g/dl (3.3-4.9); ALBUMIN/GLOBULIN RATIO 0.77; ALKALINE PHOSPHATASE 161 IU/L (42-121); ANION GAP 9 (5-13); ASPARTATE AMINO TRANSFERASE 86 IU/L (15-46); BILIRUBIN,INDIRECT 8.1 mg/dl (0-1.1); BILIRUBIN,TOTAL 8.1 mg/dl (0.2-1.3); BLOOD UREA NITROGEN 12 mg/dl (7-20); CALCIUM 8.6 mg/dl (8.4-10.2); CARBON DIOXIDE 28 mmol/L (21-31); CHLORIDE 101 mmol/L (97-110); CREATININE 0.57 mg/dl (0.44-1.00); Estimated GFR > 60 mL/min (>60); GLUCOSE 97 mg/dl (70-220); MAGNESIUM 2.1 mg/dl (1.7-2.5); POTASSIUM 4.3 mmol/L (3.5-5.1); SODIUM 138 mmol/L (135-144); TOTAL PROTEIN 7.8 g/dl (6.1-8.1)
[2018-08-14 08:27] LABS: LACTATE DEHYDROGENASE 723 IU/L (313-618)
[2018-08-14 09:03] LABS: ACANTHOCYTES 1+ (0-0); ANISOCYTOSIS 1+ (0-0); BAND NEUTROPHILS #M 0.2 10^3/ul (0.0-0.6); BAND NEUTROPHILS % (M) 5 % (0-4); BASOPHILS % (M) 2 % (0-2); ECHINOCYTOSIS 1+ (0-0); EOSINOPHILS % (M) 10 % (0-7); GIANT THROMBO% (M) 1 % (0-0); LYMPHOCYTES #M 1.5 10^3/ul (0.8-2.9); LYMPHOCYTES % (M) 32 % (15-51); MONOCYTE #M 0.2 10^3/ul (0.3-0.9); MONOCYTES % (M) 6 % (0-11); PLATELET ESTIMATE DECREASED; POIKILOCYTOSIS 3+ (0-0); POLYCHROMASIA 3+ (0-0); SEG NEUT #M 2.1 10^3/ul (1.6-7.5); SEGMENTED NEUTROPHILS (M) % 45 % (39-77); SMUDGE%M 11 % (0-0); TARGET CELLS 1+ (0-0)
[2018-08-14 09:43] LABS: INR 2.02; PROTIME 23.3 Sec (11.9-14.9); PT RATIO 1.8
[2018-08-14 09:44] LABS: PARTIAL THROMBOPLASTIN TIME 43.9 Sec (23.0-35.0)
[2018-08-14] MEDS: predniSONE 20 MG TAB PO (09:51)
[2018-08-14] MEDS: TRIMETHOPRIM/SULFAMETHOX (DS) TAB PO (09:51)
[2018-08-14] MEDS: PROPRANOLOL 10 MG TAB PO ×3 (09:52→20:04)
[2018-08-14] MEDS: LEVOTHYROXINE 25 MCG TAB PO (09:52)
[2018-08-14] MEDS: FUROSEMIDE 20 MG TAB PO ×2 (09:52→20:03)
[2018-08-14] MEDS: SPIRONOLACTONE 25 MG TAB PO (09:53)
[2018-08-14] MEDS: DOCUSATE SODIUM 100 MG CAP PO ×2 (14:30→20:03)
[2018-08-14] MEDS: traMADol 50 MG TAB PO (14:30)
[2018-08-14] MEDS ORDERED: VANCOMYCIN IV PER PHARMACY XX (16:00)
[2018-08-14] MEDS: PIPER-TAZO 3.375 GM IV (PMX) 100 ML IVPB ×2 (17:14→23:41)
[2018-08-14] MEDS: VANCOMYCIN 1.5 GM in SOD CHLORIDE 0.9% 250 ML IVPB (20:04)
[2018-08-14] MEDS: LORAZEPAM 0.5 MG TAB PO (23:41)
[2018-08-15] MEDS: PIPER-TAZO 3.375 GM IV (PMX) 100 ML IVPB (05:21)
[2018-08-15] MEDS: PANTOPRAZOLE (EC) 40 MG TAB PO (05:22)
[2018-08-15 05:48] LABS: ADD MAN DIFF? NO
[2018-08-15 06:02] LABS: ABNORMAL IP MESSAGE 1; BASOPHILS % 0.2 % (0.0-2.0); EOSINOPHILS % 0.4 % (0.0-7.0); HEMATOCRIT 22.3 % (37.0-47.0); HEMOGLOBIN 7.3 g/dl (12.0-16.0); LYMPHOCYTES # 1.3 10^3/ul (0.8-2.9); LYMPHOCYTES % 15.1 % (15.0-51.0); MEAN CORPUSCULAR HEMOGLOBIN 35.1 pg (29.0-33.0); MEAN CORPUSCULAR HGB CONC 32.7 g/dl (32.0-37.0); MEAN CORPUSCULAR VOLUME 107.2 fl (82.0-101.0); MEAN PLATELET VOLUME 9.2 fl (7.4-10.4); MONOCYTE # 0.6 10^3/ul (0.3-0.9); MONOCYTES % 7.1 % (0.0-11.0); NEUTROPHIL # 6.3 10^3/ul (1.6-7.5); NEUTROPHILS % 76.2 % (39.0-77.0); PLATELET COUNT 105 10^3/UL (140-415); RED BLOOD COUNT 2.08 10^6/ul (4.20-5.40); RED CELL DISTRIBUTION WIDTH 24.6 % (11.5-14.5)
[2018-08-15 06:02] LABS: WHITE BLOOD COUNT 8.3 10^3/ul (4.8-10.8)
[2018-08-15] MEDS: LEVOTHYROXINE 125 MCG TAB PO (06:08)
[2018-08-15] MEDS: VANCOMYCIN 1.5 GM in SOD CHLORIDE 0.9% 250 ML IVPB (06:08)
[2018-08-15 06:14] LABS: POSITIVE DIFF @See below
[2018-08-15 07:14] LABS: ANION GAP 8 (5-13); BLOOD UREA NITROGEN 12 mg/dl (7-20); CALCIUM 8.8 mg/dl (8.4-10.2); CARBON DIOXIDE 30 mmol/L (21-31); CHLORIDE 101 mmol/L (97-110); CREATININE 0.67 mg/dl (0.44-1.00); Estimated GFR > 60 mL/min (>60); GLUCOSE 115 mg/dl (70-220); MAGNESIUM 2.2 mg/dl (1.7-2.5); POTASSIUM 4.9 mmol/L (3.5-5.1); SODIUM 139 mmol/L (135-144)
[2018-08-15] MEDS: ALBUTEROL/IPRATROPIUM (NEB) 3 ML AMP HHN ×3 (08:00→19:57)
[2018-08-15] MEDS: SPIRONOLACTONE 25 MG TAB PO (08:21)
[2018-08-15] MEDS: DOCUSATE SODIUM 100 MG CAP PO ×2 (08:22→21:42)
[2018-08-15] MEDS: predniSONE 20 MG TAB PO (08:22)
[2018-08-15] MEDS: PROPRANOLOL 10 MG TAB PO ×3 (08:22→21:42)
[2018-08-15] MEDS: FUROSEMIDE 20 MG TAB PO ×2 (08:22→21:00)
[2018-08-15 11:54] LABS: IMMEDIATE SPIN CROSSMATCH 1 2
[2018-08-15] MEDS: FENTAnyl 50 MCG/ML VIAL (14:37)
[2018-08-15] MEDS: LIDOCAINE 1% (MPF) 5 ML VIAL (14:37)
[2018-08-15 16:16] LABS: HAPTOGLOBIN <8 mg/dL (43-212)
[2018-08-15] MEDS: traMADol 50 MG TAB PO (19:09)
[2018-08-15] MEDS ORDERED: TRIMETHOPRIM/SULFAMETHOX (DS) TAB PO (21:00)
[2018-08-15] MEDS: TRIMETHOPRIM/SULFAMETHOX (DS) TAB PO (21:42)
[2018-08-15] MEDS: LORAZEPAM 0.5 MG TAB PO (22:25)
[2018-08-16 05:21] LABS: ADD MAN DIFF? NO
[2018-08-16 05:29] LABS: ABNORMAL IP MESSAGE 1; BASOPHIL # 0.1 10^3/ul (0.0-0.1); BASOPHILS % 0.7 % (0.0-2.0); EOSINOPHILS # 0.3 10^3/ul (0.0-0.5); EOSINOPHILS % 3.7 % (0.0-7.0); HEMATOCRIT 20.7 % (37.0-47.0); LYMPHOCYTES # 1.9 10^3/ul (0.8-2.9); LYMPHOCYTES % 28.4 % (15.0-51.0); MEAN CORPUSCULAR HEMOGLOBIN 34.7 pg (29.0-33.0); MEAN CORPUSCULAR HGB CONC 31.9 g/dl (32.0-37.0); MEAN CORPUSCULAR VOLUME 108.9 fl (82.0-101.0); MEAN PLATELET VOLUME 9.2 fl (7.4-10.4); MONOCYTE # 0.9 10^3/ul (0.3-0.9); MONOCYTES % 12.9 % (0.0-11.0); NEUTROPHIL # 3.6 10^3/ul (1.6-7.5); NEUTROPHILS % 53.6 % (39.0-77.0); PLATELET COUNT 105 10^3/UL (140-415)
[2018-08-16 05:29] LABS: WHITE BLOOD COUNT 6.8 10^3/ul (4.8-10.8)
[2018-08-16 05:32] LABS: POSITIVE DIFF @See below
[2018-08-16 05:34] LABS: HEMOGLOBIN 6.6 g/dl (12.0-16.0)
[2018-08-16 05:54] LABS: ANION GAP 11 (5-13); BLOOD UREA NITROGEN 14 mg/dl (7-20); CALCIUM 8.7 mg/dl (8.4-10.2); CARBON DIOXIDE 29 mmol/L (21-31); CHLORIDE 102 mmol/L (97-110); CREATININE 0.69 mg/dl (0.44-1.00); Estimated GFR > 60 mL/min (>60); GLUCOSE 96 mg/dl (70-220); PHOSPHORUS 5.3 mg/dl (2.5-4.9); POTASSIUM 4.5 mmol/L (3.5-5.1); SODIUM 142 mmol/L (135-144)
[2018-08-16] MEDS: PANTOPRAZOLE (EC) 40 MG TAB PO (06:30)
[2018-08-16] MEDS: LEVOTHYROXINE 125 MCG TAB PO (06:30)
[2018-08-16] MEDS: ALBUTEROL/IPRATROPIUM (NEB) 3 ML AMP HHN ×3 (08:00→20:00)
[2018-08-16] MEDS: DOCUSATE SODIUM 100 MG CAP PO ×2 (09:28→20:26)
[2018-08-16] MEDS: predniSONE 20 MG TAB PO (09:28)
[2018-08-16] MEDS: PROPRANOLOL 10 MG TAB PO ×3 (09:29→20:27)
[2018-08-16] MEDS: TRIMETHOPRIM/SULFAMETHOX (DS) TAB PO (09:29)
[2018-08-16] MEDS: FUROSEMIDE 20 MG TAB PO ×2 (09:29→20:26)
[2018-08-16] MEDS: SPIRONOLACTONE 25 MG TAB PO (09:30)
[2018-08-16] MEDS: FOLIC ACID 1 MG TAB PO (10:23)
[2018-08-16 17:33] LABS: ADD MAN DIFF? NO
[2018-08-16 17:35] LABS: WHITE BLOOD COUNT 4.9 10^3/ul (4.8-10.8)
[2018-08-16 17:35] LABS: ABNORMAL IP MESSAGE 1; BASOPHILS % 0.2 % (0.0-2.0); EOSINOPHILS # 0.1 10^3/ul (0.0-0.5); HEMATOCRIT 21.6 % (37.0-47.0); LYMPHOCYTES # 0.8 10^3/ul (0.8-2.9); LYMPHOCYTES % 16.5 % (15.0-51.0); MEAN CORPUSCULAR HEMOGLOBIN 35.4 pg (29.0-33.0); MEAN CORPUSCULAR HGB CONC 32.4 g/dl (32.0-37.0); MEAN CORPUSCULAR VOLUME 109.1 fl (82.0-101.0); MONOCYTE # 0.2 10^3/ul (0.3-0.9); MONOCYTES % 3.1 % (0.0-11.0); NEUTROPHIL # 3.9 10^3/ul (1.6-7.5); NEUTROPHILS % 78.4 % (39.0-77.0); PLATELET COUNT 95 10^3/UL (140-415); RED BLOOD COUNT 1.98 10^6/ul (4.20-5.40); RED CELL DISTRIBUTION WIDTH 23.9 % (11.5-14.5)
[2018-08-16 17:36] LABS: POSITIVE DIFF @See below
[2018-08-17 06:25] LABS: ADD MAN DIFF? NO
[2018-08-17] MEDS: PANTOPRAZOLE (EC) 40 MG TAB PO (06:27)
[2018-08-17] MEDS: LEVOTHYROXINE 125 MCG TAB PO (06:27)
[2018-08-17 06:30] LABS: WHITE BLOOD COUNT 7.7 10^3/ul (4.8-10.8)
[2018-08-17 06:30] LABS: ABNORMAL IP MESSAGE 1; BASOPHILS % 0.1 % (0.0-2.0); EOSINOPHILS % 0.3 % (0.0-7.0); LYMPHOCYTES # 1.2 10^3/ul (0.8-2.9); LYMPHOCYTES % 15.2 % (15.0-51.0); MEAN CORPUSCULAR HEMOGLOBIN 34.7 pg (29.0-33.0); MEAN CORPUSCULAR HGB CONC 31.9 g/dl (32.0-37.0); MEAN CORPUSCULAR VOLUME 108.8 fl (82.0-101.0); MEAN PLATELET VOLUME 9.5 fl (7.4-10.4); MONOCYTE # 0.8 10^3/ul (0.3-0.9); MONOCYTES % 10.7 % (0.0-11.0); NEUTROPHIL # 5.6 10^3/ul (1.6-7.5); NEUTROPHILS % 72.9 % (39.0-77.0); PLATELET COUNT 102 10^3/UL (140-415); RED BLOOD COUNT 1.93 10^6/ul (4.20-5.40); RED CELL DISTRIBUTION WIDTH 23.6 % (11.5-14.5)
[2018-08-17 06:43] LABS: POSITIVE DIFF @See below
[2018-08-17 06:47] LABS: HEMOGLOBIN 6.7 g/dl (12.0-16.0)
[2018-08-17 07:16] LABS: MAGNESIUM 2.1 mg/dl (1.7-2.5)
[2018-08-17 07:39] LABS: ALANINE AMINOTRANSFERASE 38 IU/L (13-69); ALBUMIN 3.6 g/dl (3.3-4.9); ALKALINE PHOSPHATASE 173 IU/L (42-121); ANION GAP 12 (5-13); ASPARTATE AMINO TRANSFERASE 84 IU/L (15-46); BLOOD UREA NITROGEN 15 mg/dl (7-20); CALCIUM 8.8 mg/dl (8.4-10.2); CARBON DIOXIDE 27 mmol/L (21-31); CHLORIDE 102 mmol/L (97-110); CREATININE 0.59 mg/dl (0.44-1.00); Estimated GFR > 60 mL/min (>60); GLUCOSE 116 mg/dl (70-220); POTASSIUM 4.4 mmol/L (3.5-5.1); SODIUM 141 mmol/L (135-144); TOTAL PROTEIN 8.1 g/dl (6.1-8.1)
[2018-08-17] MEDS: ALBUTEROL/IPRATROPIUM (NEB) 3 ML AMP HHN ×2 (08:00→14:00)
[2018-08-17] MEDS: predniSONE 20 MG TAB PO (08:49)
[2018-08-17] MEDS: DOCUSATE SODIUM 100 MG CAP PO (08:52)
[2018-08-17] MEDS: FOLIC ACID 1 MG TAB PO (08:53)
[2018-08-17] MEDS: FUROSEMIDE 20 MG TAB PO (08:53)
[2018-08-17] MEDS: PROPRANOLOL 10 MG TAB PO (08:53)
[2018-08-17] MEDS: TRIMETHOPRIM/SULFAMETHOX (DS) TAB PO (08:54)
[2018-08-17] MEDS: SPIRONOLACTONE 25 MG TAB PO (08:54)
[2018-08-17 12:46] LABS: ANA SCREEN NEGATIVE (NEGATIVE)
[2018-08-17 19:31] LABS: HOMOCYSTEINE - CARDIOVASCULAR 10.3 umol/L (<10.4)
[2018-08-17 20:17] LABS: HOMOCYSTEINE - CARDIOVASCULAR 11.5 umol/L (<10.4)
== END 2018-08-17 15:35 | disposition home or self-care (01) | DRG 803 ==
LOC: FTE 13:45 → 2NE 16:23
PROC: 30233N1 Transfusion of Nonautologous Red Blood Cells into Peripheral Vein, Percutaneous Approach (ICD-10-PCS; 2018-08-13)
PROC: 0QB33ZX Excision of Left Pelvic Bone, Percutaneous Approach, Diagnostic (ICD-10-PCS; principal; 2018-08-15)
PROC: 07DR3ZX Extraction of Iliac Bone Marrow, Percutaneous Approach, Diagnostic (ICD-10-PCS; 2018-08-15)
PROC: 30233K1 Transfusion of Nonautologous Frozen Plasma into Peripheral Vein, Percutaneous Approach (ICD-10-PCS; 2018-08-15)
DX: D53.9 Nutritional anemia, unspecified (principal); D68.4 Acquired coagulation factor deficiency; D58.9 Hereditary hemolytic anemia, unspecified; E03.9 Hypothyroidism, unspecified; K70.30 Alcoholic cirrhosis of liver without ascites; M79.89 Other specified soft tissue disorders; M25.462 Effusion, left knee; M79.605 Pain in left leg; S80.02XA Contusion of left knee, initial encounter; W18.30XA Fall on same level, unspecified, initial encounter
CPT/HCPCS: 36430; 71260; 73721; 74177; 77012; 80048; 80053; 81003; 81025; 82607; 82728; 82746; 83010; 83090; 83540; 83605; 83615; 83690; 83735; 83921; 84100; 85025; 85045; 85610; 85651; 85730; 86038; 86140; 86157; 86850; 86880; 86900; 86901; 86920; 87040; 88305; 88311; 88313; 93971; 94664

== ENCOUNTER 2018-08-17 19:12 | Inpatient (IN) | payer OTHER ==
[2018-08-17 20:21] LABS: WHITE BLOOD COUNT 12.1 10^3/ul (4.8-10.8)
[2018-08-17 20:21] LABS: ABNORMAL IP MESSAGE 1; HEMATOCRIT 14.7 % (37.0-47.0); MEAN CORPUSCULAR HEMOGLOBIN 34.8 pg (29.0-33.0); MEAN CORPUSCULAR HGB CONC 31.3 g/dl (32.0-37.0); MEAN CORPUSCULAR VOLUME 111.4 fl (82.0-101.0); MEAN PLATELET VOLUME 9.6 fl (7.4-10.4); PLATELET COUNT 109 10^3/UL (140-415); RED BLOOD COUNT 1.32 10^6/ul (4.20-5.40); RED CELL DISTRIBUTION WIDTH 22.8 % (11.5-14.5)
[2018-08-17] MEDS: PANTOPRAZOLE 40 MG INJ IV (20:21)
[2018-08-17 20:23] LABS: POSITIVE DIFF @See below
[2018-08-17 20:24] LABS: ADD MAN DIFF? YES; HEMOGLOBIN 4.6 g/dl (12.0-16.0)
[2018-08-17] MEDS: OCTREOTIDE 50 MCG in SOD CHLORIDE 0.9% 25 ML IVPB (20:31)
[2018-08-17 20:38] LABS: ALANINE AMINOTRANSFERASE 41 IU/L (13-69); ALBUMIN 2.5 g/dl (3.3-4.9); ALBUMIN/GLOBULIN RATIO 0.64; ALKALINE PHOSPHATASE 145 IU/L (42-121); ANION GAP 3 (5-13); ASPARTATE AMINO TRANSFERASE 74 IU/L (15-46); BILIRUBIN,INDIRECT 6.1 mg/dl (0-1.1); BILIRUBIN,TOTAL 6.1 mg/dl (0.2-1.3); BLOOD UREA NITROGEN 18 mg/dl (7-20); CARBON DIOXIDE 27 mmol/L (21-31); CHLORIDE 104 mmol/L (97-110); CREATININE 0.53 mg/dl (0.44-1.00); Estimated GFR > 60 mL/min (>60); GLUCOSE 126 mg/dl (70-220); LIPASE 259 U/L (23-300); POTASSIUM 4.8 mmol/L (3.5-5.1); SODIUM 134 mmol/L (135-144); TOTAL PROTEIN 6.4 g/dl (6.1-8.1)
[2018-08-17 20:41] LABS: INR 2.95; PROTIME 31.6 Sec (11.9-14.9); PT RATIO 2.5
[2018-08-17 20:42] LABS: PARTIAL THROMBOPLASTIN TIME 41.4 Sec (23.0-35.0)
[2018-08-17] MEDS: CEFTRIAXONE 1 GM/50 ML (PMX) 50 ML IVPB (20:43)
[2018-08-17 20:49] LABS: TROPONIN-I < 0.012 ng/ml (0.000-0.120)
[2018-08-17] MEDS: PANTOPRAZOLE IV 80 MG in SOD CHLORIDE 0.9% 100 ML IV (21:21)
[2018-08-17] MEDS: OCTREOTIDE 500 MCG in SOD CHLORIDE 0.9% 49 ML IV (21:27)
[2018-08-17 21:32] LABS: ANISOCYTOSIS 3+ (0-0); BAND NEUTROPHILS #M 0.6 10^3/ul (0.0-0.6); BAND NEUTROPHILS % (M) 5 % (0-4); LYMPHOCYTES #M 1.6 10^3/ul (0.8-2.9); LYMPHOCYTES % (M) 14 % (15-51); MICROCYTOSIS 2+ (0-0); MONOCYTE #M 0.7 10^3/ul (0.3-0.9); MONOCYTES % (M) 6 % (0-11); PLATELET ESTIMATE DECREASED; POIKILOCYTOSIS 3+ (0-0); POLYCHROMASIA 3+ (0-0); SEG NEUT #M 9.1 10^3/ul (1.6-7.5); SEGMENTED NEUTROPHILS (M) % 75 % (39-77)
[2018-08-17] MEDS ORDERED: NACL 0.9% 3 ML SYG IV (22:00)
[2018-08-17] MEDS ORDERED: ONDANSETRON 4 MG INJ IV (22:00)
[2018-08-17] MEDS ORDERED: ALBUTEROL/IPRATROPIUM (NEB) 3 ML AMP INH (22:00)
[2018-08-17] MEDS: LORAZEPAM 2 MG INJ IV (22:13)
[2018-08-17] MEDS: SUCRALFATE 1 GM TAB PO (23:40)
[2018-08-18] MEDS: FUROSEMIDE 40 MG INJ IV (06:00)
[2018-08-18 06:19] LABS: ADD MAN DIFF? NO
[2018-08-18 06:31] LABS: ABNORMAL IP MESSAGE 1; BASOPHILS % 0.1 % (0.0-2.0); EOSINOPHILS % 0.3 % (0.0-7.0); HEMATOCRIT 18.4 % (37.0-47.0); LYMPHOCYTES # 2.7 10^3/ul (0.8-2.9); LYMPHOCYTES % 20.8 % (15.0-51.0); MEAN CORPUSCULAR HEMOGLOBIN 31.7 pg (29.0-33.0); MEAN CORPUSCULAR HGB CONC 32.6 g/dl (32.0-37.0); MEAN CORPUSCULAR VOLUME 97.4 fl (82.0-101.0); MEAN PLATELET VOLUME 9.5 fl (7.4-10.4); MONOCYTE # 1.3 10^3/ul (0.3-0.9); MONOCYTES % 10.2 % (0.0-11.0); NEUTROPHIL # 8.8 10^3/ul (1.6-7.5); NEUTROPHILS % 67.8 % (39.0-77.0); PLATELET COUNT 89 10^3/UL (140-415); RED BLOOD COUNT 1.89 10^6/ul (4.20-5.40); RED CELL DISTRIBUTION WIDTH 27.3 % (11.5-14.5)
[2018-08-18 06:42] LABS: POSITIVE DIFF @See below
[2018-08-18] MEDS: DEXTROSE 5%-0.45% NACL 1,000 ML IV (06:58)
[2018-08-18 07:03] LABS: ALANINE AMINOTRANSFERASE 40 IU/L (13-69); ALBUMIN 2.5 g/dl (3.3-4.9); ALBUMIN/GLOBULIN RATIO 0.73; ALKALINE PHOSPHATASE 112 IU/L (42-121); ANION GAP 8 (5-13); ASPARTATE AMINO TRANSFERASE 63 IU/L (15-46); BILIRUBIN,INDIRECT 6.6 mg/dl (0-1.1); BILIRUBIN,TOTAL 6.6 mg/dl (0.2-1.3); BLOOD UREA NITROGEN 20 mg/dl (7-20); CALCIUM 8.5 mg/dl (8.4-10.2); CARBON DIOXIDE 26 mmol/L (21-31); CHLORIDE 103 mmol/L (97-110); CREATININE 0.53 mg/dl (0.44-1.00); Estimated GFR > 60 mL/min (>60); GLUCOSE 108 mg/dl (70-220); MAGNESIUM 1.9 mg/dl (1.7-2.5); SODIUM 137 mmol/L (135-144); TOTAL PROTEIN 5.9 g/dl (6.1-8.1)
[2018-08-18 07:11] LABS: POTASSIUM 5.2 mmol/L (3.5-5.1)
[2018-08-18] MEDS: SOD CHLORIDE 0.9% 500 ML IV (07:56)
[2018-08-18] MEDS: SUCRALFATE 1 GM TAB PO (09:00)
[2018-08-18] MEDS: OCTREOTIDE 1 MG in DEXTROSE 5% 95 ML IV (11:04)
[2018-08-18] MEDS: SOD CHLORIDE 0.9% 1,000 ML IV ×2 (11:14→19:00)
[2018-08-18] MEDS: LORAZEPAM 2 MG INJ IV (11:20)
[2018-08-18 12:05] LABS: RETICULOCYTE RBC 1.89
[2018-08-18 12:05] LABS: RETICULOCYTE COUNT # 0.149 X10^6 (0.020-0.110); RETICULOCYTE COUNT % 7.9 % (0.5-1.5)
[2018-08-18 12:16] LABS: LACTATE DEHYDROGENASE 598 IU/L (313-618)
[2018-08-18] MEDS: PANTOPRAZOLE IV 80 MG in SOD CHLORIDE 0.9% 100 ML IV ×2 (12:25→16:24)
[2018-08-18] MEDS: CEFTRIAXONE 1 GM/50 ML (PMX) 50 ML IVPB (13:39)
[2018-08-18] MEDS: FOLIC ACID 1 MG TAB PO (15:23)
[2018-08-18] MEDS: PHYTONADIONE 10 MG/ML INJ SC (15:24)
[2018-08-18] MEDS: CYANOCOBALAMIN 500 MCG TAB PO (15:25)
[2018-08-18] MEDS: LEVOTHYROXINE 100 MCG VIAL IV (16:30)
[2018-08-18 18:57] LABS: HEMATOCRIT 20.3 % (37.0-47.0)
[2018-08-18 19:08] LABS: HEMOGLOBIN 6.7 g/dl (12.0-16.0)
[2018-08-18] MEDS: LORAZEPAM 1 MG TAB PO (22:07)
[2018-08-19 01:12] LABS: HEMATOCRIT 16.7 % (37.0-47.0)
[2018-08-19 01:24] LABS: HEMOGLOBIN 5.5 g/dl (12.0-16.0)
[2018-08-19 02:19] LABS: IMMEDIATE SPIN CROSSMATCH 1
[2018-08-19] MEDS: PANTOPRAZOLE IV 80 MG in SOD CHLORIDE 0.9% 100 ML IV ×3 (02:27→22:21)
[2018-08-19] MEDS: OCTREOTIDE 1 MG in DEXTROSE 5% 95 ML IV (04:08)
[2018-08-19] MEDS: SOD CHLORIDE 0.9% 1,000 ML IV ×3 (05:09→22:17)
[2018-08-19] MEDS: LEVOTHYROXINE 100 MCG VIAL IV (05:36)
[2018-08-19 06:01] LABS: ADD MAN DIFF? NO
[2018-08-19 06:15] LABS: ABNORMAL IP MESSAGE 1; BASOPHILS % 0.4 % (0.0-2.0); EOSINOPHILS # 0.2 10^3/ul (0.0-0.5); EOSINOPHILS % 4.3 % (0.0-7.0); HEMATOCRIT 20.1 % (37.0-47.0); LYMPHOCYTES # 2.5 10^3/ul (0.8-2.9); LYMPHOCYTES % 44.4 % (15.0-51.0); MEAN CORPUSCULAR HEMOGLOBIN 31.8 pg (29.0-33.0); MEAN CORPUSCULAR HGB CONC 33.3 g/dl (32.0-37.0); MEAN CORPUSCULAR VOLUME 95.3 fl (82.0-101.0); MEAN PLATELET VOLUME 9.4 fl (7.4-10.4); MONOCYTE # 0.7 10^3/ul (0.3-0.9); MONOCYTES % 13.1 % (0.0-11.0); NEUTROPHILS % 36.4 % (39.0-77.0); PLATELET COUNT 52 10^3/UL (140-415); RED BLOOD COUNT 2.11 10^6/ul (4.20-5.40); RED CELL DISTRIBUTION WIDTH 23.3 % (11.5-14.5)
[2018-08-19 06:15] LABS: WHITE BLOOD COUNT 5.6 10^3/ul (4.8-10.8)
[2018-08-19 06:36] LABS: HEMOGLOBIN 6.7 g/dl (12.0-16.0); POSITIVE DIFF @See below
[2018-08-19 06:38] LABS: INR 2.03; PROTIME 23.4 Sec (11.9-14.9); PT RATIO 1.8
[2018-08-19 07:00] LABS: ALANINE AMINOTRANSFERASE 50 IU/L (13-69); ALBUMIN 2.8 g/dl (3.3-4.9); ALBUMIN/GLOBULIN RATIO 0.77; ALKALINE PHOSPHATASE 91 IU/L (42-121); ANION GAP 10 (5-13); ASPARTATE AMINO TRANSFERASE 78 IU/L (15-46); BILIRUBIN,INDIRECT 6.6 mg/dl (0-1.1); BILIRUBIN,TOTAL 6.6 mg/dl (0.2-1.3); BLOOD UREA NITROGEN 19 mg/dl (7-20); CALCIUM 8.4 mg/dl (8.4-10.2); CARBON DIOXIDE 26 mmol/L (21-31); CHLORIDE 104 mmol/L (97-110); CREATININE 0.64 mg/dl (0.44-1.00); Estimated GFR > 60 mL/min (>60); GLUCOSE 79 mg/dl (70-220); POTASSIUM 4.3 mmol/L (3.5-5.1); SODIUM 140 mmol/L (135-144); TOTAL PROTEIN 6.4 g/dl (6.1-8.1)
[2018-08-19 07:06] LABS: HEPATITIS B SURFACE ANTIGEN NEGATIVE (NEGATIVE)
[2018-08-19 07:23] LABS: ALPHA FETOPROTEIN 1.85 IU/L (0.00-7.21)
[2018-08-19 07:23] LABS: HEPATITIS C VIRAL ANTIBODY NEGATIVE (NEGATIVE)
[2018-08-19 07:27] LABS: HEPATITIS B SURFACE ANTIBODY NEGATIVE (NEGATIVE)
[2018-08-19] MEDS: FOLIC ACID 1 MG TAB PO (08:52)
[2018-08-19] MEDS: CYANOCOBALAMIN 500 MCG TAB PO (08:52)
[2018-08-19] MEDS: PHYTONADIONE 10 MG/ML INJ SC (08:52)
[2018-08-19] MEDS: CEFTRIAXONE 1 GM/50 ML (PMX) 50 ML IVPB (08:52)
[2018-08-19 13:47] LABS: HEMATOCRIT 24.6 % (37.0-47.0); HEMOGLOBIN 8.3 g/dl (12.0-16.0)
[2018-08-19 18:26] LABS: HEMOGLOBIN 8.4 g/dl (12.0-16.0)
[2018-08-20 00:57] LABS: HEMOGLOBIN 7.6 g/dl (12.0-16.0)
[2018-08-20] MEDS: OCTREOTIDE 1 MG in DEXTROSE 5% 95 ML IV (00:58)
[2018-08-20 05:35] LABS: ADD MAN DIFF? NO
[2018-08-20] MEDS: LEVOTHYROXINE 100 MCG VIAL IV (05:38)
[2018-08-20 05:50] LABS: ABNORMAL IP MESSAGE 1; BASOPHILS % 0.5 % (0.0-2.0); EOSINOPHILS # 0.2 10^3/ul (0.0-0.5); EOSINOPHILS % 5.4 % (0.0-7.0); HEMOGLOBIN 7.5 g/dl (12.0-16.0); LYMPHOCYTES # 1.8 10^3/ul (0.8-2.9); LYMPHOCYTES % 41.4 % (15.0-51.0); MEAN CORPUSCULAR HEMOGLOBIN 32.2 pg (29.0-33.0); MEAN CORPUSCULAR HGB CONC 34.1 g/dl (32.0-37.0); MEAN CORPUSCULAR VOLUME 94.4 fl (82.0-101.0); MEAN PLATELET VOLUME 9.2 fl (7.4-10.4); MONOCYTE # 0.5 10^3/ul (0.3-0.9); MONOCYTES % 12.2 % (0.0-11.0); NEUTROPHIL # 1.7 10^3/ul (1.6-7.5); NEUTROPHILS % 39.6 % (39.0-77.0); RED BLOOD COUNT 2.33 10^6/ul (4.20-5.40); RED CELL DISTRIBUTION WIDTH 22.6 % (11.5-14.5)
[2018-08-20 05:50] LABS: WHITE BLOOD COUNT 4.3 10^3/ul (4.8-10.8)
[2018-08-20 06:04] LABS: INR 2.18; PROTIME 24.8 Sec (11.9-14.9); PT RATIO 1.9
[2018-08-20 06:13] LABS: POSITIVE DIFF @See below
[2018-08-20 06:14] LABS: PLATELET COUNT 47 10^3/UL (140-415)
[2018-08-20 06:20] LABS: ANION GAP 6 (5-13); BLOOD UREA NITROGEN 12 mg/dl (7-20); CALCIUM 8.1 mg/dl (8.4-10.2); CARBON DIOXIDE 29 mmol/L (21-31); CHLORIDE 104 mmol/L (97-110); Estimated GFR > 60 mL/min (>60); GLUCOSE 80 mg/dl (70-220); MAGNESIUM 1.8 mg/dl (1.7-2.5); PHOSPHORUS 4.4 mg/dl (2.5-4.9); POTASSIUM 3.9 mmol/L (3.5-5.1); SODIUM 139 mmol/L (135-144)
[2018-08-20] MEDS: SOD CHLORIDE 0.9% 1,000 ML IV ×2 (07:25→23:40)
[2018-08-20] MEDS: CEFTRIAXONE 1 GM/50 ML (PMX) 50 ML IVPB (08:50)
[2018-08-20] MEDS: FOLIC ACID 1 MG TAB PO (08:52)
[2018-08-20] MEDS: CYANOCOBALAMIN 500 MCG TAB PO (08:57)
[2018-08-20] MEDS: PANTOPRAZOLE IV 80 MG in SOD CHLORIDE 0.9% 100 ML IV (09:51)
[2018-08-20] MEDS: PROPOFOL 20 ML (14:10)
[2018-08-20] MEDS ORDERED: MIDAZOLAM 1 MG/ML 2 ML INJ IV (15:30)
[2018-08-20] MEDS ORDERED: MEPERIDINE 25 MG INJ IV (15:30)
[2018-08-20] MEDS ORDERED: FENTAnyl 50 MCG/ML VIAL IV (15:30)
[2018-08-20] MEDS ORDERED: METOCLOPRAMIDE 10 MG INJ IV (15:30)
[2018-08-20] MEDS ORDERED: DIPHENHYDRAMINE 50 MG INJ IV (15:30)
[2018-08-20] MEDS ORDERED: ONDANSETRON 4 MG INJ IV (15:30)
[2018-08-20] MEDS: PROPRANOLOL 10 MG TAB PO (16:30)
[2018-08-20 17:07] LABS: IMMEDIATE SPIN CROSSMATCH 1 6
[2018-08-20] MEDS: PANTOPRAZOLE 40 MG INJ IV (17:25)
[2018-08-20] MEDS: PHYTONADIONE 10 MG/ML INJ SC (17:26)
[2018-08-20 22:03] LABS: TYPE AND SCREEN 1 1
[2018-08-20] MEDS: LORAZEPAM 0.5 MG TAB PO (23:39)
[2018-08-21 05:12] LABS: ABNORMAL IP MESSAGE 1; ADD MAN DIFF? NO; BASOPHILS % 0.7 % (0.0-2.0); EOSINOPHILS # 0.3 10^3/ul (0.0-0.5); EOSINOPHILS % 5.8 % (0.0-7.0); HEMATOCRIT 22.1 % (37.0-47.0); HEMOGLOBIN 7.3 g/dl (12.0-16.0); LYMPHOCYTES # 1.5 10^3/ul (0.8-2.9); LYMPHOCYTES % 33.7 % (15.0-51.0); MEAN CORPUSCULAR HEMOGLOBIN 31.9 pg (29.0-33.0); MEAN CORPUSCULAR VOLUME 96.5 fl (82.0-101.0); MEAN PLATELET VOLUME 8.9 fl (7.4-10.4); MONOCYTE # 0.6 10^3/ul (0.3-0.9); MONOCYTES % 13.5 % (0.0-11.0); NEUTROPHILS % 45.6 % (39.0-77.0); PLATELET COUNT 55 10^3/UL (140-415); RED BLOOD COUNT 2.29 10^6/ul (4.20-5.40); RED CELL DISTRIBUTION WIDTH 22.4 % (11.5-14.5)
[2018-08-21 05:12] LABS: WHITE BLOOD COUNT 4.3 10^3/ul (4.8-10.8)
[2018-08-21 05:21] LABS: POSITIVE DIFF @See below
[2018-08-21] MEDS: PANTOPRAZOLE 40 MG INJ IV ×2 (05:44→18:53)
[2018-08-21] MEDS: LEVOTHYROXINE 100 MCG VIAL IV (05:49)
[2018-08-21] MEDS: SOD CHLORIDE 0.9% 1,000 ML IV ×3 (06:20→16:00)
[2018-08-21] MEDS: CEFTRIAXONE 1 GM/50 ML (PMX) 50 ML IVPB (09:43)
[2018-08-21] MEDS: PHYTONADIONE 10 MG/ML INJ SC (09:44)
[2018-08-21] MEDS: FOLIC ACID 1 MG TAB PO (09:45)
[2018-08-21] MEDS: CYANOCOBALAMIN 500 MCG TAB PO (09:45)
[2018-08-21] MEDS: PROPRANOLOL 10 MG TAB PO ×2 (09:46→20:46)
[2018-08-21] MEDS: LIDOCAINE 1% (MPF) 5 ML VIAL SC ×3 (10:00→21:17)
[2018-08-21] MEDS: FUROSEMIDE 20 MG TAB PO (20:46)
[2018-08-22] MEDS: SOD CHLORIDE 0.9% 1,000 ML IV ×2 (02:00→11:37)
[2018-08-22 05:05] LABS: ADD MAN DIFF? NO
[2018-08-22 05:10] LABS: WHITE BLOOD COUNT 5.4 10^3/ul (4.8-10.8)
[2018-08-22 05:10] LABS: ABNORMAL IP MESSAGE 1; BASOPHILS % 0.7 % (0.0-2.0); EOSINOPHILS # 0.4 10^3/ul (0.0-0.5); EOSINOPHILS % 6.7 % (0.0-7.0); HEMOGLOBIN 7.5 g/dl (12.0-16.0); LYMPHOCYTES # 1.7 10^3/ul (0.8-2.9); LYMPHOCYTES % 30.9 % (15.0-51.0); MEAN CORPUSCULAR HEMOGLOBIN 31.8 pg (29.0-33.0); MEAN CORPUSCULAR HGB CONC 32.6 g/dl (32.0-37.0); MEAN CORPUSCULAR VOLUME 97.5 fl (82.0-101.0); MEAN PLATELET VOLUME 9.6 fl (7.4-10.4); MONOCYTE # 0.8 10^3/ul (0.3-0.9); MONOCYTES % 14.5 % (0.0-11.0); NEUTROPHIL # 2.5 10^3/ul (1.6-7.5); NEUTROPHILS % 46.6 % (39.0-77.0); PLATELET COUNT 65 10^3/UL (140-415); RED BLOOD COUNT 2.36 10^6/ul (4.20-5.40); RED CELL DISTRIBUTION WIDTH 22.6 % (11.5-14.5)
[2018-08-22 05:27] LABS: INR 2.03; PROTIME 23.4 Sec (11.9-14.9); PT RATIO 1.8
[2018-08-22 05:43] LABS: ALANINE AMINOTRANSFERASE 42 IU/L (13-69); ALBUMIN 3.1 g/dl (3.3-4.9); ALKALINE PHOSPHATASE 119 IU/L (42-121); ANION GAP 9 (5-13); ASPARTATE AMINO TRANSFERASE 68 IU/L (15-46); BLOOD UREA NITROGEN 7 mg/dl (7-20); CALCIUM 8.3 mg/dl (8.4-10.2); CARBON DIOXIDE 27 mmol/L (21-31); CHLORIDE 103 mmol/L (97-110); CREATININE 0.48 mg/dl (0.44-1.00); Estimated GFR > 60 mL/min (>60); GLUCOSE 112 mg/dl (70-220); POTASSIUM 3.7 mmol/L (3.5-5.1); SODIUM 139 mmol/L (135-144); TOTAL PROTEIN 6.7 g/dl (6.1-8.1)
[2018-08-22 05:47] LABS: POSITIVE DIFF @See below
[2018-08-22] MEDS: PANTOPRAZOLE 40 MG INJ IV ×2 (06:12→19:15)
[2018-08-22] MEDS: LEVOTHYROXINE 125 MCG TAB PO (06:12)
[2018-08-22] MEDS: SPIRONOLACTONE 25 MG TAB PO (09:00)
[2018-08-22] MEDS: FOLIC ACID 1 MG TAB PO (09:22)
[2018-08-22] MEDS: FUROSEMIDE 20 MG TAB PO ×2 (09:22→21:00)
[2018-08-22] MEDS: CYANOCOBALAMIN 500 MCG TAB PO (09:22)
[2018-08-22] MEDS: PROPRANOLOL 10 MG TAB PO ×2 (09:23→21:46)
[2018-08-22] MEDS: PHYTONADIONE 10 MG/ML INJ SC (09:23)
[2018-08-22] MEDS ORDERED: METHYLPREDNISOLONE 125 MG INJ IV (12:00)
[2018-08-22] MEDS ORDERED: MEPERIDINE 50 MG INJ IV (12:30)
[2018-08-22] MEDS ORDERED: DIPHENHYDRAMINE 50 MG INJ IV (12:30)
[2018-08-22] MEDS: ONDANSETRON INJ 16 MG, DEXAMETHASONE 10 MG/ML 10 MG in SOD CHLORIDE 0.9% 50 ML IVPB (13:12)
[2018-08-22] MEDS: DIPHENHYDRAMINE 50 MG INJ IV (13:12)
[2018-08-22] MEDS: SOD CHLORIDE 0.9% IV (13:54)
[2018-08-22] MEDS: RITUXIMAB IV (13:54)
[2018-08-22] MEDS: LORAZEPAM 0.5 MG TAB PO (23:32)
[2018-08-23] MEDS: SOD CHLORIDE 0.9% 1,000 ML IV ×2 (00:36→08:00)
[2018-08-23] MEDS: LEVOTHYROXINE 125 MCG TAB PO (05:40)
[2018-08-23] MEDS: PANTOPRAZOLE 40 MG INJ IV (05:40)
[2018-08-23] MEDS: FUROSEMIDE 20 MG TAB PO (06:12)
[2018-08-23] MEDS: CYANOCOBALAMIN 500 MCG TAB PO (08:34)
[2018-08-23] MEDS: PROPRANOLOL 10 MG TAB PO (08:34)
[2018-08-23] MEDS: FOLIC ACID 1 MG TAB PO (08:34)
[2018-08-23 09:03] LABS: ADD MAN DIFF? NO
[2018-08-23 09:05] LABS: WHITE BLOOD COUNT 6.1 10^3/ul (4.8-10.8)
[2018-08-23 09:05] LABS: ABNORMAL IP MESSAGE 1; EOSINOPHILS % 0.2 % (0.0-7.0); HEMATOCRIT 25.7 % (37.0-47.0); HEMOGLOBIN 8.3 g/dl (12.0-16.0); LYMPHOCYTES # 0.7 10^3/ul (0.8-2.9); LYMPHOCYTES % 11.2 % (15.0-51.0); MEAN CORPUSCULAR HEMOGLOBIN 31.4 pg (29.0-33.0); MEAN CORPUSCULAR HGB CONC 32.3 g/dl (32.0-37.0); MEAN CORPUSCULAR VOLUME 97.3 fl (82.0-101.0); MEAN PLATELET VOLUME 10.1 fl (7.4-10.4); MONOCYTE # 0.4 10^3/ul (0.3-0.9); MONOCYTES % 6.5 % (0.0-11.0); NEUTROPHILS % 81.6 % (39.0-77.0); PLATELET COUNT 77 10^3/UL (140-415); RED BLOOD COUNT 2.64 10^6/ul (4.20-5.40); RED CELL DISTRIBUTION WIDTH 22.1 % (11.5-14.5)
[2018-08-23 09:14] LABS: POSITIVE DIFF @See below
[2018-08-23 09:48] LABS: ANION GAP 11 (5-13); BLOOD UREA NITROGEN 8 mg/dl (7-20); CALCIUM 8.7 mg/dl (8.4-10.2); CARBON DIOXIDE 25 mmol/L (21-31); CHLORIDE 105 mmol/L (97-110); CREATININE 0.43 mg/dl (0.44-1.00); Estimated GFR > 60 mL/min (>60); GLUCOSE 121 mg/dl (70-220); POTASSIUM 3.8 mmol/L (3.5-5.1); SODIUM 141 mmol/L (135-144)
[2018-08-23] MEDS: SPIRONOLACTONE 25 MG TAB PO (11:06)
== END 2018-08-23 12:34 | disposition home or self-care (01) | DRG 299 ==
LOC: E/R 19:12 → MS1 08-20 14:20 → 6WM 20:45
PROC: 0DJ08ZZ Inspection of Upper Intestinal Tract, Via Natural or Artificial Opening Endoscopic (ICD-10-PCS; principal; 2018-08-20 14:00)
PROC: 30233K1 Transfusion of Nonautologous Frozen Plasma into Peripheral Vein, Percutaneous Approach (ICD-10-PCS; 2018-08-20 14:00)
PROC: 30233N1 Transfusion of Nonautologous Red Blood Cells into Peripheral Vein, Percutaneous Approach (ICD-10-PCS; 2018-08-20 14:00)
PROC: 02HV33Z Insertion of Infusion Device into Superior Vena Cava, Percutaneous Approach (ICD-10-PCS; 2018-08-20 14:00)
DX: I86.4 Gastric varices (principal); K29.71 Gastritis, unspecified, with bleeding; D68.9 Coagulation defect, unspecified; D59.9 Acquired hemolytic anemia, unspecified; K92.0 Hematemesis; I85.00 Esophageal varices without bleeding; E03.9 Hypothyroidism, unspecified; F41.9 Anxiety disorder, unspecified; K70.30 Alcoholic cirrhosis of liver without ascites; M79.89 Other specified soft tissue disorders
CPT/HCPCS: 36415; 36430; 36569; 71045; 76937; 80048; 80053; 80076; 82105; 83615; 83690; 83735; 84100; 84484; 84703; 85014; 85018; 85025; 85045; 85610; 85730; 86706; 86709; 86803; 86850; 86900; 86901; 86920; 87340; 93005; 96374; 96375; 99291-25; J9310

== ENCOUNTER 2018-09-19 12:16 | Inpatient (IN) | payer OTHER ==
[2018-09-19 13:59] LABS: ADD MAN DIFF? NO
[2018-09-19 14:01] LABS: WHITE BLOOD COUNT 4.8 10^3/ul (4.8-10.8)
[2018-09-19 14:01] LABS: BASOPHILS % 0.2 % (0.0-2.0); EOSINOPHILS # 0.2 10^3/ul (0.0-0.5); EOSINOPHILS % 3.2 % (0.0-7.0); HEMATOCRIT 22.9 % (37.0-47.0); HEMOGLOBIN 7.2 g/dl (12.0-16.0); LYMPHOCYTES # 1.2 10^3/ul (0.8-2.9); LYMPHOCYTES % 24.4 % (15.0-51.0); MEAN CORPUSCULAR HGB CONC 31.4 g/dl (32.0-37.0); MEAN PLATELET VOLUME 10.1 fl (7.4-10.4); MONOCYTE # 0.8 10^3/ul (0.3-0.9); MONOCYTES % 15.8 % (0.0-11.0); NEUTROPHIL # 2.7 10^3/ul (1.6-7.5); NEUTROPHILS % 55.8 % (39.0-77.0); PLATELET COUNT 132 10^3/UL (140-415); RED BLOOD COUNT 2.18 10^6/ul (4.20-5.40); RED CELL DISTRIBUTION WIDTH 18.6 % (11.5-14.5)
[2018-09-19 14:07] LABS: ADD UMIC YES; UR ASCORBIC ACID NEGATIVE (NEGATIVE); UR BACTERIA FEW /HPF (NONE SEEN); UR BILIRUBIN (Dip) NEGATIVE (NEGATIVE); UR BLOOD (Dip) NEGATIVE (NEGATIVE); UR CLARITY CLEAR (CLEAR); UR COLOR YELLOW (YELLOW); UR GLUCOSE (Dip) NEGATIVE (NEGATIVE); UR KETONES (Dip) NEGATIVE (NEGATIVE); UR LEUKOCYTE ESTERASE (Dip) 3+ Leu/ul (NEGATIVE); UR NITRITE (Dip) NEGATIVE (NEGATIVE); UR RBC 3 /HPF (0-5); UR SPECIFIC GRAVITY (Dip) 1.017 (1.003-1.030); UR SQUAMOUS EPITHELIAL CELL FEW /HPF (FEW); UR TOTAL PROTEIN (Dip) NEGATIVE (NEGATIVE); UR UROBILINOGEN (Dip) 2+ mg/dL (NEGATIVE); UR WBC 79 /HPF (0-5)
[2018-09-19 14:17] LABS: ALANINE AMINOTRANSFERASE 52 IU/L (13-69); ALBUMIN 3.4 g/dl (3.3-4.9); ALBUMIN/GLOBULIN RATIO 0.75; ALKALINE PHOSPHATASE 322 IU/L (42-121); ANION GAP 9 (5-13); ASPARTATE AMINO TRANSFERASE 88 IU/L (15-46); BILIRUBIN,INDIRECT 4.6 mg/dl (0-1.1); BILIRUBIN,TOTAL 4.6 mg/dl (0.2-1.3); BLOOD UREA NITROGEN 13 mg/dl (7-20); CALCIUM 8.5 mg/dl (8.4-10.2); CARBON DIOXIDE 28 mmol/L (21-31); CHLORIDE 101 mmol/L (97-110); CREATININE 0.62 mg/dl (0.44-1.00); Estimated GFR > 60 mL/min (>60); GLUCOSE 108 mg/dl (70-220); POTASSIUM 4.6 mmol/L (3.5-5.1); SODIUM 138 mmol/L (135-144); TOTAL PROTEIN 7.9 g/dl (6.1-8.1)
[2018-09-19 14:25] LABS: B-TYPE NATRIURETIC PEPTIDE 1460 PG/ML (0-125)
[2018-09-19] MEDS: LEVOFLOXACIN 750MG/D5W (PMX) 150 ML IVPB (15:52)
[2018-09-19] MEDS ORDERED: ACETAMINOPHEN 325 MG TAB PO ×2 (16:00→17:00)
[2018-09-19] MEDS ORDERED: ONDANSETRON 4 MG INJ IV ×2 (16:00→17:00)
[2018-09-19] MEDS ORDERED: DEXTROSE 50% 50 ML SYRINGE IV (16:30)
[2018-09-19] MEDS ORDERED: ZOLPIDEM 5 MG TAB PO (17:00)
[2018-09-19] MEDS ORDERED: HYDROCODONE/APAP (5/325) TAB PO (17:00)
[2018-09-19] MEDS ORDERED: NACL 0.9% 3 ML SYG IV (17:00)
[2018-09-19] MEDS ORDERED: ALBUTEROL 0.083% (NEB) 2.5 MG/3 ML AMP NEB (17:00)
[2018-09-19] MEDS: FUROSEMIDE 40 MG INJ IV (20:23)
[2018-09-19] MEDS: predniSONE 20 MG TAB PO (20:23)
[2018-09-19] MEDS: CEFTRIAXONE 1 GM/50 ML (PMX) 50 ML IVPB (20:46)
[2018-09-19] MEDS: traZODone 50 MG TAB PO ×2 (20:46→20:50)
[2018-09-19 21:11] LABS: IMMEDIATE SPIN CROSSMATCH 1 2
[2018-09-19] MEDS: LORAZEPAM 0.5 MG TAB PO (22:13)
[2018-09-19] MEDS: PROPRANOLOL 10 MG TAB PO (22:13)
[2018-09-20] MEDS: SUCRALFATE 1 GM TAB PO ×5 (00:09→23:50)
[2018-09-20 05:21] LABS: ADD MAN DIFF? NO
[2018-09-20 05:27] LABS: BASOPHILS % 0.3 % (0.0-2.0); EOSINOPHILS % 0.6 % (0.0-7.0); HEMATOCRIT 26.4 % (37.0-47.0); HEMOGLOBIN 8.4 g/dl (12.0-16.0); LYMPHOCYTES # 0.6 10^3/ul (0.8-2.9); MEAN CORPUSCULAR HEMOGLOBIN 31.7 pg (29.0-33.0); MEAN CORPUSCULAR HGB CONC 31.8 g/dl (32.0-37.0); MEAN CORPUSCULAR VOLUME 99.6 fl (82.0-101.0); MEAN PLATELET VOLUME 9.9 fl (7.4-10.4); MONOCYTE # 0.1 10^3/ul (0.3-0.9); MONOCYTES % 2.6 % (0.0-11.0); NEUTROPHIL # 2.7 10^3/ul (1.6-7.5); NEUTROPHILS % 77.9 % (39.0-77.0); PLATELET COUNT 112 10^3/UL (140-415); RED BLOOD COUNT 2.65 10^6/ul (4.20-5.40); RED CELL DISTRIBUTION WIDTH 20.2 % (11.5-14.5)
[2018-09-20 05:27] LABS: WHITE BLOOD COUNT 3.5 10^3/ul (4.8-10.8)
[2018-09-20] MEDS: FUROSEMIDE 40 MG INJ IV ×2 (06:00→17:33)
[2018-09-20] MEDS: PANTOPRAZOLE (EC) 40 MG TAB PO (06:00)
[2018-09-20] MEDS: LEVOTHYROXINE 125 MCG TAB PO (06:00)
[2018-09-20 06:15] LABS: ALANINE AMINOTRANSFERASE 44 IU/L (13-69); ALBUMIN 3.1 g/dl (3.3-4.9); ALBUMIN/GLOBULIN RATIO 0.77; ALKALINE PHOSPHATASE 220 IU/L (42-121); ANION GAP 10 (5-13); ASPARTATE AMINO TRANSFERASE 75 IU/L (15-46); BILIRUBIN,INDIRECT 5.5 mg/dl (0-1.1); BILIRUBIN,TOTAL 5.5 mg/dl (0.2-1.3); BLOOD UREA NITROGEN 15 mg/dl (7-20); CALCIUM 8.4 mg/dl (8.4-10.2); CARBON DIOXIDE 28 mmol/L (21-31); CHLORIDE 101 mmol/L (97-110); Estimated GFR > 60 mL/min (>60); GLUCOSE 126 mg/dl (70-220); PHOSPHORUS 4.3 mg/dl (2.5-4.9); POTASSIUM 4.6 mmol/L (3.5-5.1); SODIUM 139 mmol/L (135-144); TOTAL PROTEIN 7.1 g/dl (6.1-8.1)
[2018-09-20] MEDS ORDERED: LEVOTHYROXINE 100 MCG TAB PO (07:00)
[2018-09-20] MEDS ORDERED: LEVOTHYROXINE 25 MCG TAB PO (07:00)
[2018-09-20 07:13] LABS: HEMOGLOBIN A1C 4.7 % (0-5.9)
[2018-09-20] MEDS: ENOXAPARIN 40 MG/0.4 ML SYG SC (09:00)
[2018-09-20] MEDS: SPIRONOLACTONE 25 MG TAB PO (09:31)
[2018-09-20] MEDS: PROPRANOLOL 10 MG TAB PO ×3 (09:31→22:00)
[2018-09-20] MEDS: FLUTICASONE/VILANTEROL 200-25 INH DEVICE INH ×2 (10:02→12:51)
[2018-09-20] MEDS: CEFTRIAXONE 1 GM/50 ML (PMX) 50 ML IVPB (20:45)
[2018-09-20] MEDS: traZODone 50 MG TAB PO (20:45)
[2018-09-20] MEDS: LORAZEPAM 0.5 MG TAB PO (23:50)
[2018-09-21] MEDS: FUROSEMIDE 40 MG INJ IV (05:45)
[2018-09-21] MEDS: PANTOPRAZOLE (EC) 40 MG TAB PO (05:45)
[2018-09-21] MEDS: LEVOTHYROXINE 125 MCG TAB PO (05:45)
[2018-09-21] MEDS: SUCRALFATE 1 GM TAB PO (05:45)
[2018-09-21 06:10] LABS: ADD MAN DIFF? NO
[2018-09-21 06:13] LABS: BASOPHILS % 0.5 % (0.0-2.0); EOSINOPHILS # 0.2 10^3/ul (0.0-0.5); EOSINOPHILS % 3.6 % (0.0-7.0); HEMATOCRIT 24.9 % (37.0-47.0); HEMOGLOBIN 7.9 g/dl (12.0-16.0); LYMPHOCYTES # 2.3 10^3/ul (0.8-2.9); LYMPHOCYTES % 35.4 % (15.0-51.0); MEAN CORPUSCULAR HEMOGLOBIN 31.9 pg (29.0-33.0); MEAN CORPUSCULAR HGB CONC 31.7 g/dl (32.0-37.0); MEAN CORPUSCULAR VOLUME 100.4 fl (82.0-101.0); MEAN PLATELET VOLUME 9.1 fl (7.4-10.4); MONOCYTES % 15.7 % (0.0-11.0); NEUTROPHIL # 2.9 10^3/ul (1.6-7.5); NEUTROPHILS % 44.3 % (39.0-77.0); PLATELET COUNT 115 10^3/UL (140-415); RED BLOOD COUNT 2.48 10^6/ul (4.20-5.40); RED CELL DISTRIBUTION WIDTH 20.2 % (11.5-14.5)
[2018-09-21 06:13] LABS: WHITE BLOOD COUNT 6.6 10^3/ul (4.8-10.8)
[2018-09-21 06:50] LABS: ANION GAP 11 (5-13); BLOOD UREA NITROGEN 18 mg/dl (7-20); CALCIUM 8.8 mg/dl (8.4-10.2); CARBON DIOXIDE 31 mmol/L (21-31); CHLORIDE 97 mmol/L (97-110); CREATININE 0.72 mg/dl (0.44-1.00); Estimated GFR > 60 mL/min (>60); GLUCOSE 100 mg/dl (70-220); MAGNESIUM 1.9 mg/dl (1.7-2.5); PHOSPHORUS 4.2 mg/dl (2.5-4.9); POTASSIUM 3.6 mmol/L (3.5-5.1); SODIUM 139 mmol/L (135-144)
[2018-09-21] MEDS: TRIMETHOPRIM/SULFAMETHOX (DS) TAB PO (08:31)
[2018-09-21] MEDS: PROPRANOLOL 10 MG TAB PO (08:31)
[2018-09-21] MEDS: predniSONE 50 MG TAB PO (08:31)
[2018-09-21] MEDS: SPIRONOLACTONE 25 MG TAB PO (08:31)
[2018-09-21] MEDS: ENOXAPARIN 40 MG/0.4 ML SYG SC (08:32)
[2018-09-21] MEDS: FLUTICASONE/VILANTEROL 200-25 INH DEVICE INH (08:32)
[2018-09-21 10:35] LABS: RETICULOCYTE COUNT # 0.132 X10^6 (0.020-0.110); RETICULOCYTE COUNT % 5.3 % (0.5-1.5)
[2018-09-21 10:35] LABS: RETICULOCYTE RBC 2.49
[2018-09-21 10:54] LABS: LACTATE DEHYDROGENASE 684 IU/L (313-618)
[2018-09-22 14:36] LABS: HAPTOGLOBIN <8 mg/dL (43-212)
== END 2018-09-21 13:24 | disposition home or self-care (01) | DRG 948 ==
LOC: E/R 12:16 → 6WM 15:41
PROC: 30233N1 Transfusion of Nonautologous Red Blood Cells into Peripheral Vein, Percutaneous Approach (ICD-10-PCS; principal; 2018-09-19)
DX: R60.1 Generalized edema (principal); N39.0 Urinary tract infection, site not specified; D59.1 Other autoimmune hemolytic anemias; E87.70 Fluid overload, unspecified; K70.30 Alcoholic cirrhosis of liver without ascites
CPT/HCPCS: 36415; 36430; 71045; 80048; 80053; 81001; 83010; 83036; 83615; 83735; 83880; 84100; 84443; 85025; 85045; 86850; 86900; 86901; 86920; 87040; 87086; 99285-25

== ENCOUNTER 2018-09-26 11:10 | Inpatient (IN) | payer OTHER ==
[2018-09-26 11:56] LABS: ADD MAN DIFF? NO
[2018-09-26 11:57] LABS: WHITE BLOOD COUNT 8.6 10^3/ul (4.8-10.8)
[2018-09-26 11:57] LABS: BASOPHILS % 0.1 % (0.0-2.0); EOSINOPHILS # 0.1 10^3/ul (0.0-0.5); EOSINOPHILS % 0.8 % (0.0-7.0); HEMATOCRIT 28.1 % (37.0-47.0); LYMPHOCYTES # 1.4 10^3/ul (0.8-2.9); MEAN CORPUSCULAR HEMOGLOBIN 32.6 pg (29.0-33.0); MEAN CORPUSCULAR VOLUME 101.8 fl (82.0-101.0); MEAN PLATELET VOLUME 10.7 fl (7.4-10.4); MONOCYTE # 1.4 10^3/ul (0.3-0.9); MONOCYTES % 16.5 % (0.0-11.0); NEUTROPHIL # 5.7 10^3/ul (1.6-7.5); PLATELET COUNT 146 10^3/UL (140-415); RED BLOOD COUNT 2.76 10^6/ul (4.20-5.40); RED CELL DISTRIBUTION WIDTH 18.6 % (11.5-14.5)
[2018-09-26 12:20] LABS: INR 2.25; PROTIME 24.9 Sec (11.9-14.9); PT RATIO 1.9
[2018-09-26 12:26] LABS: ALANINE AMINOTRANSFERASE 55 IU/L (13-69); ALBUMIN 3.9 g/dl (3.3-4.9); ALBUMIN/GLOBULIN RATIO 0.81; ALKALINE PHOSPHATASE 280 IU/L (42-121); ANION GAP 9 (5-13); ASPARTATE AMINO TRANSFERASE 85 IU/L (15-46); BILIRUBIN,INDIRECT 5.6 mg/dl (0-1.1); BILIRUBIN,TOTAL 5.6 mg/dl (0.2-1.3); BLOOD UREA NITROGEN 19 mg/dl (7-20); CALCIUM 9.3 mg/dl (8.4-10.2); CARBON DIOXIDE 29 mmol/L (21-31); CHLORIDE 100 mmol/L (97-110); CREATININE 0.67 mg/dl (0.44-1.00); Estimated GFR > 60 mL/min (>60); GLUCOSE 87 mg/dl (70-220); SODIUM 138 mmol/L (135-144); TOTAL PROTEIN 8.7 g/dl (6.1-8.1)
[2018-09-26 12:36] LABS: B-TYPE NATRIURETIC PEPTIDE 2010 PG/ML (0-125); TROPONIN-I < 0.012 ng/ml (0.000-0.120)
[2018-09-26] MEDS: FUROSEMIDE 40 MG INJ IV ×2 (13:11→18:23)
[2018-09-26] MEDS ORDERED: ONDANSETRON 4 MG INJ IV (14:30)
[2018-09-26] MEDS ORDERED: ACETAMINOPHEN 325 MG TAB PO (14:30)
[2018-09-26] MEDS ORDERED: TEMAZEPAM 7.5 MG PO (16:00)
[2018-09-26] MEDS ORDERED: DOCUSATE SODIUM 100 MG CAP PO (16:00)
[2018-09-26] MEDS ORDERED: LORAZEPAM 1 MG TAB PO (16:00)
[2018-09-26] MEDS ORDERED: ZOLPIDEM 5 MG TAB PO (16:00)
[2018-09-26] MEDS ORDERED: NACL 0.9% 3 ML SYG IV (16:00)
[2018-09-26] MEDS: PANTOPRAZOLE (EC) 40 MG TAB PO (18:22)
[2018-09-26] MEDS: METOLAZONE 5 MG TAB PO (18:23)
[2018-09-26] MEDS: SPIRONOLACTONE 50 MG TAB PO (18:23)
[2018-09-26] MEDS: PROPRANOLOL 10 MG TAB PO (20:41)
[2018-09-26] MEDS: predniSONE 20 MG TAB PO (20:41)
[2018-09-27] MEDS: traMADol 50 MG TAB PO ×2 (00:23→16:17)
[2018-09-27] MEDS: morphine SULFATE/PF (2 MG/2 ML) SYG IV ×3 (04:33→21:54)
[2018-09-27] MEDS: ONDANSETRON 4 MG INJ IV ×2 (04:39→17:38)
[2018-09-27 04:57] LABS: ADD MAN DIFF? NO
[2018-09-27 05:12] LABS: WHITE BLOOD COUNT 14.6 10^3/ul (4.8-10.8)
[2018-09-27 05:12] LABS: BASOPHILS % 0.1 % (0.0-2.0); EOSINOPHILS % 0.3 % (0.0-7.0); HEMATOCRIT 27.2 % (37.0-47.0); HEMOGLOBIN 8.8 g/dl (12.0-16.0); LYMPHOCYTES # 0.9 10^3/ul (0.8-2.9); LYMPHOCYTES % 6.4 % (15.0-51.0); MEAN CORPUSCULAR HEMOGLOBIN 32.5 pg (29.0-33.0); MEAN CORPUSCULAR HGB CONC 32.4 g/dl (32.0-37.0); MEAN CORPUSCULAR VOLUME 100.4 fl (82.0-101.0); MEAN PLATELET VOLUME 10.9 fl (7.4-10.4); MONOCYTE # 1.3 10^3/ul (0.3-0.9); MONOCYTES % 9.1 % (0.0-11.0); NEUTROPHIL # 12.2 10^3/ul (1.6-7.5); NEUTROPHILS % 83.7 % (39.0-77.0); PLATELET COUNT 133 10^3/UL (140-415); RED BLOOD COUNT 2.71 10^6/ul (4.20-5.40); RED CELL DISTRIBUTION WIDTH 18.6 % (11.5-14.5)
[2018-09-27 05:44] LABS: ANION GAP 10 (5-13); BLOOD UREA NITROGEN 21 mg/dl (7-20); CALCIUM 9.2 mg/dl (8.4-10.2); CARBON DIOXIDE 33 mmol/L (21-31); CHLORIDE 96 mmol/L (97-110); CREATININE 0.66 mg/dl (0.44-1.00); Estimated GFR > 60 mL/min (>60); GLUCOSE 108 mg/dl (70-220); MAGNESIUM 2.2 mg/dl (1.7-2.5); PHOSPHORUS 4.6 mg/dl (2.5-4.9); POTASSIUM 4.2 mmol/L (3.5-5.1); SODIUM 139 mmol/L (135-144)
[2018-09-27] MEDS: SPIRONOLACTONE 50 MG TAB PO ×2 (06:20→18:56)
[2018-09-27] MEDS: FUROSEMIDE 40 MG INJ IV ×2 (06:20→18:57)
[2018-09-27] MEDS: PANTOPRAZOLE (EC) 40 MG TAB PO ×2 (06:21→18:56)
[2018-09-27] MEDS: LEVOTHYROXINE 125 MCG TAB PO (06:21)
[2018-09-27] MEDS: predniSONE 20 MG TAB PO ×2 (09:29→20:49)
[2018-09-27] MEDS: PROPRANOLOL 10 MG TAB PO ×2 (09:29→20:53)
[2018-09-27] MEDS: METOLAZONE 5 MG TAB PO (09:29)
[2018-09-27] MEDS: FLUTICASONE/VILANTEROL 100-25 INH (09:30)
[2018-09-28] MEDS: ONDANSETRON 4 MG INJ IV (02:22)
[2018-09-28] MEDS: morphine SULFATE/PF (2 MG/2 ML) SYG IV (02:25)
[2018-09-28 05:03] LABS: ADD MAN DIFF? NO
[2018-09-28 05:11] LABS: WHITE BLOOD COUNT 11.2 10^3/ul (4.8-10.8)
[2018-09-28 05:11] LABS: BASOPHILS % 0.1 % (0.0-2.0); EOSINOPHILS % 0.3 % (0.0-7.0); HEMATOCRIT 30.5 % (37.0-47.0); HEMOGLOBIN 9.9 g/dl (12.0-16.0); LYMPHOCYTES # 0.7 10^3/ul (0.8-2.9); LYMPHOCYTES % 6.3 % (15.0-51.0); MEAN CORPUSCULAR HGB CONC 32.5 g/dl (32.0-37.0); MEAN CORPUSCULAR VOLUME 98.7 fl (82.0-101.0); MEAN PLATELET VOLUME 11.6 fl (7.4-10.4); MONOCYTES % 8.8 % (0.0-11.0); NEUTROPHIL # 9.4 10^3/ul (1.6-7.5); NEUTROPHILS % 84.1 % (39.0-77.0); PLATELET COUNT 157 10^3/UL (140-415); RED BLOOD COUNT 3.09 10^6/ul (4.20-5.40); RED CELL DISTRIBUTION WIDTH 17.8 % (11.5-14.5)
[2018-09-28 05:35] LABS: ANION GAP 11 (5-13); BLOOD UREA NITROGEN 19 mg/dl (7-20); CALCIUM 9.8 mg/dl (8.4-10.2); CARBON DIOXIDE 34 mmol/L (21-31); CHLORIDE 91 mmol/L (97-110); CREATININE 0.54 mg/dl (0.44-1.00); Estimated GFR > 60 mL/min (>60); GLUCOSE 110 mg/dl (70-220); POTASSIUM 4.9 mmol/L (3.5-5.1); SODIUM 136 mmol/L (135-144)
[2018-09-28] MEDS: traMADol 50 MG TAB PO (05:35)
[2018-09-28] MEDS: LEVOTHYROXINE 125 MCG TAB PO (06:35)
[2018-09-28] MEDS: SPIRONOLACTONE 50 MG TAB PO (06:36)
[2018-09-28] MEDS: FUROSEMIDE 40 MG INJ IV (06:37)
[2018-09-28] MEDS: PANTOPRAZOLE (EC) 40 MG TAB PO (06:45)
[2018-09-28] MEDS: predniSONE 20 MG TAB PO (09:09)
[2018-09-28] MEDS: FLUTICASONE/VILANTEROL 100-25 INH (09:10)
[2018-09-28] MEDS: PROPRANOLOL 10 MG TAB PO (09:11)
[2018-09-28] MEDS: METOLAZONE 5 MG TAB PO (09:11)
== END 2018-09-28 13:27 | disposition home or self-care (01) | DRG 292 ==
LOC: E/R 11:10 → MS1 14:31
DX: I50.33 Acute on chronic diastolic (congestive) heart failure (principal); D59.1 Other autoimmune hemolytic anemias; K70.31 Alcoholic cirrhosis of liver with ascites; E03.9 Hypothyroidism, unspecified; R60.1 Generalized edema; Z79.899 Other long term (current) drug therapy
CPT/HCPCS: 36415; 71045; 76705; 80048; 80053; 83735; 83880; 84100; 84484; 85025; 85610; 93005; 96374; 99285-25

== ENCOUNTER 2019-02-12 15:31 | Day surgery (SDC) | payer OTHER ==
[~2019-02-12 15:31] MED LIST: DESFLURANE 15 MIN; SUCCINYLCHOLINE CHLORIDE 100 MG/5 ML SYG IV
[2019-02-12] MEDS ORDERED: NEOMYC/POLYMYX/BACIT 30 GM OINT (16:19)
[2019-02-12] MEDS ORDERED: POLYMYXIN/BACITRACIN 1L IRRIG (16:19)
[2019-02-12] MEDS ORDERED: ROPIVACAINE 0.5 % 30 ML VIAL ×2 (16:19→17:16)
[2019-02-12] MEDS ORDERED: ONDANSETRON 4 MG INJ (17:16)
[2019-02-12] MEDS ORDERED: MIDAZOLAM 1 MG/ML 2 ML INJ ×2 (17:16→18:04)
[2019-02-12] MEDS ORDERED: PROPOFOL 20 ML (17:16)
[2019-02-12] MEDS ORDERED: NEOSTIGMINE 3 MG/3 ML SYRINGE (17:16)
[2019-02-12] MEDS ORDERED: ROCURONIUM 50 MG INJ (17:16)
[2019-02-12] MEDS ORDERED: GLYCOPYRROLATE 0.4 MG INJ (17:16)
[2019-02-12] MEDS ORDERED: DEXAMETHASONE 4 MG/ML 5 ML INJ ×2 (17:16→18:35)
[2019-02-12] MEDS ORDERED: FENTAnyl 50 MCG/ML VIAL ×2 (17:16→18:04)
[2019-02-12] MEDS ORDERED: CEFAZOLIN 1 GM INJ (17:16)
[2019-02-12] MEDS ORDERED: FENTAnyl 50 MCG/ML VIAL IV ×3 (17:30)
[2019-02-12] MEDS ORDERED: LABETALOL HCL 20MG INJ IV (17:30)
[2019-02-12] MEDS ORDERED: hydrALAzine 20 MG INJ IV (17:30)
[2019-02-12] MEDS ORDERED: MEPERIDINE 25 MG INJ IV (17:30)
[2019-02-12] MEDS ORDERED: ALBUTEROL 0.083% (NEB) 2.5 MG/3 ML AMP HHN (17:30)
[2019-02-12] MEDS ORDERED: DIPHENHYDRAMINE 50 MG INJ IV (17:30)
[2019-02-12] MEDS ORDERED: HYDROmorphONE 1 MG/5 ML IV SYRINGE IV (17:30)
[2019-02-12] MEDS ORDERED: MIDAZOLAM 1 MG/ML 2 ML INJ IV (17:30)
[2019-02-12] MEDS ORDERED: OXYCODONE/ACETAMINOPHEN (5/325) TAB PO ×2 (17:30)
[2019-02-12] MEDS ORDERED: IPRATROPIUM (NEB) 0.5 MG/2.5 ML AMP HHN (17:30)
[2019-02-12] MEDS ORDERED: EPHEDrine 25 MG/5 ML SYG IV (17:30)
[2019-02-12] MEDS ORDERED: TRIMETHOBENZAMIDE 100 MG/ML VIAL IM (17:30)
[2019-02-12] MEDS ORDERED: PHENYLephrine (100 MCG/ML) 10ML SYG (18:19)
[2019-02-12] MEDS ORDERED: PROVENTIL HFA 6.7GM INHALER (18:28)
[2019-02-12] MEDS ORDERED: morphine 2 MG INJ IV (18:30)
[2019-02-12] MEDS ORDERED: KETOROLAC 30 MG INJ IV (18:30)
[2019-02-12] MEDS: LACTATED RINGER'S 1,000 ML IV (19:16)
[2019-02-12] MEDS ORDERED: SUGAMMADEX SODIUM 200 MG/2 ML VIAL IV (19:34)
[2019-02-12] MEDS: BACITRACIN/POLYMYXIN 0.9 GM OINT TOP (19:37)
[2019-02-12] MEDS: ONDANSETRON 4 MG INJ IV ×2 (20:23→21:27)
[2019-02-12] MEDS: HYDROmorphONE 1 MG/5 ML IV SYRINGE IV ×2 (20:23→20:50)
== END 2019-02-12 21:40 | disposition home or self-care (01) ==
LOC: SDS 15:31
DX: S82.842A Displaced bimalleolar fracture of left lower leg, initial encounter for closed fracture (principal); X58.XXXA Exposure to other specified factors, initial encounter; E78.5 Hyperlipidemia, unspecified; E03.9 Hypothyroidism, unspecified; K70.30 Alcoholic cirrhosis of liver without ascites; K76.6 Portal hypertension
CPT/HCPCS: 27814; 73610; 82306

== ENCOUNTER 2019-05-06 07:40 | Day surgery (SDC) | payer OTHER ==
[2019-05-06 09:52] LABS: POTASSIUM 3.6 mmol/L (3.5-5.1)
[2019-05-06] MEDS ORDERED: PROPOFOL 40 ML (10:36)
[2019-05-06] MEDS ORDERED: LIDOCAINE 2% (SDV) 5 ML INJ (10:36)
[2019-05-06] MEDS ORDERED: PROPOFOL 200 MG INJ (10:36)
== END 2019-05-06 12:35 | disposition home or self-care (01) ==
LOC: GIL 07:40
DX: I85.00 Esophageal varices without bleeding (principal); K76.6 Portal hypertension; K31.89 Other diseases of stomach and duodenum
CPT/HCPCS: 43235; 84132; 84703